=== PATIENT | female | born 1960 | race Hispanic/Latino ===

== ENCOUNTER 2017-02-12 10:31 | Day surgery (SDC) | payer MEDICARE, BC ==
[2017-02-12 11:31] VITALS: BMI 25.8
[2017-02-12] MEDS ORDERED: MethylPREDNISolone Depo 40 mg/ml Inj ONE (11:35)
[2017-02-12] MEDS ORDERED: Lidocaine 1% Inj (20ml) ONE (11:36)
[2017-02-12] MEDS ORDERED: Iohexol 300 10 ML ONE (11:36)
[2017-02-12] MEDS ORDERED: Bupivacaine HCl 0.25% PF (10 ml) Inj ONE (11:36)
[2017-02-12] MEDS ORDERED: Midazolam 2 MG/2 ML VIAL ONE (12:53)
[2017-02-12] MEDS ORDERED: Bupivacaine HCl 0.25% PF (10 ml) Inj IJ ONE (13:01)
[2017-02-12] MEDS ORDERED: methylPREDNISolone Depo 80 mg/ml Inj IM ONE (13:02)
[2017-02-12] MEDS ORDERED: Lidocaine 1% Inj (20ml) IJ ONE (13:02)
[2017-02-12] MEDS ORDERED: Iohexol 300 10 ML IJ ONE (13:03)
[2017-02-12] MEDS ORDERED: Lactated Ringer's 1,000 ML IV ONE (13:03)
[2017-02-12] MEDS ORDERED: Apap-Butalbital-Caffeine 325-50-40mg Tab PO ONE (13:18)
[2017-02-12] MEDS ORDERED: Lactated Ringer's 1,000 ML IV SCH (13:34)
[2017-02-12] MEDS ORDERED: Apap-Butalbital-Caffeine 325-50-40mg Tab PO PRN (13:37)
--- NOTE | 2017-02-12 13:39 | PCM.OP ---
Operative Report - Operative Report Date of Surgery/Procedure: 02/12/17 Time of Surgery/Procedure: 12:50 Surgeon: Alex Anesthesia/Sedation: Monitored Anesthesia Care Pre-Operative Diagnosis: Cervical facet syndrome Post-Operative Diagnosis: Same Indication for Surgery: Intractable pain Procedure/Operation Description: Right C3, C4, C5 medial branch nerve blocks Estimated Blood Loss: None. Complications: None. Discharge & Condition: Stable for discharge home.
[2017-02-12] MEDS ORDERED: HYDROmorphone 0.5 mg/0.5 ml ISec IVP PRN (14:24)
[2017-02-12] MEDS ORDERED: HYDROmorphone 0.5 mg/0.5 ml ISec ONE (14:26)
[2017-02-12 15:47] VITALS: RESP 18
[2017-02-12 16:15] VITALS: BP 133/83; PULSE 87; TEMP 98.3; O2SAT 99
--- NOTE | 2017-02-12 17:12 | RAD ---
PROCEDURE: Intraoperative Fluoroscopy. HISTORY: PAIN MANAGEMENT FINDINGS: Fluoroscopic assistance was provided. Approximately 39.1 seconds fluoroscopy time utilized during this for additional details.
== END 2017-02-12 16:18 | disposition home or self-care (01) ==
LOC: H.OPSURG 10:31
PROVIDERS: ATTEND Anesthesiology
DX: M47.12 Other spondylosis with myelopathy, cervical region (principal); J44.9 Chronic obstructive pulmonary disease, unspecified; E03.9 Hypothyroidism, unspecified; K90.0 Celiac disease
CPT/HCPCS: 64520; J1030; J1040; J1170; J2250; J2405; J3010; J7120; Q9967

== ENCOUNTER 2017-04-05 06:02 | Inpatient (IN) | payer MEDICARE, BC ==
[2017-03-30 12:10] VITALS: BMI 26.2
[2017-04-05] MEDS ORDERED: Lidocaine 2% Jelly (Uro-Jet) ONE (07:17)
[2017-04-05] MEDS ORDERED: Ropivacaine 0.5% 30ML IV ONE (07:17)
[2017-04-05] MEDS ORDERED: Etomidate 20 mg/10ml Inj IV ONE (07:22)
[2017-04-05] MEDS ORDERED: Propofol 10 mg/ml Inj (20 ML) ONE (07:22)
[2017-04-05] MEDS ORDERED: Phenylephrine 10 mg/ml Inj ONE (07:24)
[2017-04-05] MEDS ORDERED: Succinylcholine 200 mg/10 ml Inj IV ONE (07:25)
[2017-04-05] MEDS ORDERED: EPINEPHrine 1 mg/ml (1:1000) Inj ONE (07:46)
[2017-04-05] MEDS ORDERED: Bupivacaine 0.5% Inj(30mL) ONE (07:46)
[2017-04-05] MEDS ORDERED: Absorbable Gelatin Sponge Size 100 ONE (07:47)
[2017-04-05] MEDS ORDERED: Thrombin Topical 5,000 IU Spray Kit ONE (07:47)
[2017-04-05] MEDS ORDERED: Midazolam 2 MG/2 ML VIAL ONE (08:13)
[2017-04-05] MEDS ORDERED: Sodium Chloride 0.9% 1,000 ML IV ONE ×2 (08:14→08:16)
[2017-04-05] MEDS ORDERED: Sodium Chloride 0.9% 500 ML IV ONE (08:16)
[2017-04-05] MEDS ORDERED: Rocuronium 10 mg/ml (5 ml) ONE (08:57)
[2017-04-05] MEDS ORDERED: Neostigmine Methylsulfate 3mg/3ml Syringe IV ONE (09:50)
[2017-04-05] MEDS ORDERED: Lactated Ringer's 1,000 ML IV ONE (11:31)
[2017-04-05] MEDS ORDERED: HYDROmorphone 0.5 mg/0.5 ml ISec IVP PRN (11:38)
--- NOTE | 2017-04-05 11:41 | PCM.ANESB1 ---
Interscalene Block - Brachial Plexus Date of Procedure: 04/05/17 Anesthesiologist: Deanna Pre-Procedure Diagnosis: Right shoulder OA Post-Procedure Diagnosis: Same Procedure Performed: Interscalene Block of Brachial Plexus Right - Procedure Interscalene Block of Brachial Plexus: This procedure was explained to the patient that it is for post-operative pain management. Consent was obtained after a thorough discussion with the patient regarding the benefits and possible complications of local anesthetic block of the Brachial Plexus at the Interscalene area. The patient was brought to the Operating Room and standard monitors were applied. Time out was held with the circulating nurse to confirm the correct surgery and appropriate block. After applying Oxygen by nasal cannula and administering IV Sedation, the patient's head was gently rotated away from the ___right___operative shoulder and the anterior scalene groove was carefully palpated. The ultrasound transducer was then applied to the skin in the transverse plane and the brachial plexus was visualized lateral to the carotid artery and in between the anterior and middle scalene muscles. After identification,the anterior lateral portion of the neck was prepped with Betadine solution three times and Lidocaine 1% was injected subcutaneously for topical analgesia. At this point, a # 22 gauge Stimuplex 2 inches insulated needle was inserted into the interscalene groove and directed in a caudal and midline direction. The needle was inserted lateral to the ultrasound transducer in-plane towards the brachial plexus in a [id number] direction. Needle advancement was performed carefully under direct ultrasound visualization. Nerve stimulator was used and twitched of the affected extremity including the hand brachialis muscles, biceps and the deltoid was obtained at a current of ___0.4__MA. After repeated negative aspiration,___2__cc of___0.5%__, ropivicaine were injected and this was followed with __23___cc of ___0.5__% ____ropivicaine_ . Under ultrasound guidance the local anesthetics were observed surrounding the roots of the brachial plexus. The needle was removed intact and sterile dressing was applied. The patient had stable vital signs, was conscious and in no apparent distress. The patient tolerated the interscalene block of the bracheal plexus well with stable vital signs and was prepared for subsequent surgery.
[2017-04-05] MEDS ORDERED: Sodium Chloride 0.9% 1,000 ML IV SCH (11:45)
--- NOTE | 2017-04-05 11:57 | PCM.SURG1 ---
Surgeon's Initial Post Op Note - Surgeon's Notes Surgeon: Kingston Curriculum And Instruction Specialist: DARCY Grullon Type of Anesthesia: General Endo Anesthesia Administered By: DR John Harry Pre-Operative Diagnosis: osteoarthritis R shoulder Operative Findings: as above. rotator cuff tear R shoulder. biceps tendon attenuation. labral tear r shoulder Post-Operative Diagnosis: as above Operation Performed: R Total shoulder replacement(reverse type). primary repair r rotator cuff. biceps tenodesis. arthrotomy/ excision glenoid labrum Specimen/Specimens Removed: cartilage/bone synovium Estimated Blood Loss: EBL {In ML}: 115 Blood Products Given: N/A, PRBC Drains Used: No Drains Date of Surgery/Procedure: 04/05/17 Time of Surgery/Procedure: 09:40 (time in room:8:14/anaesthesia induction time 8 :14)
[2017-04-05] MEDS: Apap-Butalbital-Caffeine 325-50-40mg Tab PO PRN (16:58)
--- NOTE | 2017-04-05 18:25 | RAD ---
PROCEDURE: Radiographs of the Right Shoulder HISTORY: s/p right total shoulder replacement COMPARISON: Chest radiograph 03/30/2017. FINDINGS: BONES: Patient fasting status post right shoulder replacement with glenoid and humeral prostatic components appearing adequately placed. Skin mike are seen and postoperative soft tissue changes are also identified. No prominent fracture or dislocation is grossly evident this time. JOINTS: Status post total right shoulder joint replacement as discussed above. SOFT TISSUES: Normal. OTHER FINDINGS: None. IMPRESSION: Status post total right shoulder joint replacement as discussed above.
--- NOTE | 2017-04-05 21:40 | PCM.OP ---
Operative Report - Operative Report Date of Surgery/Procedure: 04/05/17 Time of Surgery/Procedure: 09:40 (tiem in room- m8:14/[id number] induction time 8:14) Surgeon: Kingston Recruiting Specialist: DARCY Grullon Anesthesia/Sedation: GETA/ regional block Dr Harry Pre-Operative Diagnosis: Rotator cuff arthritis R shoulder Post-Operative Diagnosis: as above. rotator cufftear. biceps tendon attenuation. labral tear Indication for Surgery: Severe pain and restricted ROM R shoulder- refractory to conservative approach Operative Findings: as above Procedure/Operation Description: R TSR- reverse type. repair R rotator cuff. biceps tenodesis. arthrotmy excision labrum. operative procedure. after having obtained informed consent, after thoroughly discussing pros, cons risks and benefits of surgical approach, the possibility of mechanical failure, infection, thromboembolic disease- possibility of secoindary or tertiary surgery is discussed. After the satisafctory induction of scalene block and general anaesthesia, after having idenitifed side, site and procedure in a critical pause/time out, the pt identified as Sofie is placed in the modified barbner chair position, using the shoulder/upper extremity positioner. An incision is described from the distal 1/3 of the clavicle to the deltoid tuberosity. The skin incision is insufflated with 10 cc of 1/100 epi in 200 cc saline. The incision is decribed and insufflated with the solution. Skin incision is carried down thru skin and subcutaneous tissue. With the shouder in external rotation the deltyopectoral interval is identiified. The cephalic vein is mobilized. The modified pediatric glenn retractor is placed. The clavicpectoral fascia is divided The strap muscles are reflected At a point 1 cm fro mlessere tuberosity, a capsular incision is accomplished There is forun to be a rotator cuff tear as well, and biceps tendon attenuation. the lower subscapular vessels are controlled. with extyernal rotation the humeral hear is dislocated The humeral canal is found and with the appropriate 20 degree retroversion, the humeralostewotomy is accomplished, using the intramedullary guide . The hnuimeral protection plate is applied and the glenohuimeral arthrotomy is accomplisehed. The Biceps tendon is tenotomized. The arthrotomy and excision of the glenoid labrum is accomplished. The Gleoid is exposed using the glenoiod retractors. The guide pion is introduced thru the aiming device; seaming is accomplisahed with the small reamer. The high speed dain is used to more approriately offer a conforming surface for the glenoid component. Reaming is accomplished for the central glenoid peg. The small glenoid comopnent is impacted Thne drilling for the screw holes is accomplisahed with 20 mm superiorly and 26 mm inferiorly. The glenosphere is impacted and the screw is intrroduced. Attention is turned to the humerus. The humerus is exposed and the humeral shaft is reamed to 15 mm. The broach is inserted and trisaling is accomplished sith the standard poly. stability is found to be excellent. The low profile proximal body is affixed to the stem and the construct is impacted. The trial is accomplished and the ROM is found to beexcellent as well as the styability. The Construct is introduced with the real poly insert impacted. The reverse construct is reduced and the construct is stable. Thesubscapularis is repaire sauing interrupted fiber wire suture. The long head biceps tendon is tenodesed. Closure is in layers. hemostasis is controlled using aquamantyus. Closure with 0 quill folowwed by 0 quill and 2 -[address] mike for skin no hemovac is employed. Compression dressing and abduction splint is applied End op note Mansi Onofre Estimated Blood Loss: 125 Blood Replaced: 1 unit Sponge/Instrument Count: correct Drains: no drains Complications: none Specimen: cartilage bone synovium tendon Discharge & Condition: stable
[2017-04-06] MEDS: Levothyroxine 50 MCG TAB PO SCH (06:01)
[2017-04-06] MEDS: Levothyroxine 200 MCG TAB PO SCH (06:01)
[2017-04-06] MEDS: Apap-Butalbital-Caffeine 325-50-40mg Tab PO PRN ×2 (06:01→15:55)
--- NOTE | 2017-04-06 08:19 | CP.PCM.PN ---
Subjective - Date & Time of Evaluation Date of Evaluation: 04/06/17 Time of Evaluation: 08:15 - Subjective Subjective: s- pt comfortable Objective - Vital Signs/Intake and Output Vital Signs (last 24 hours): Temp Pulse Resp BP Pulse Ox 97.6 F 86 18 116/78 98 04/06/17 07:37 04/06/17 07:37 04/06/17 07:37 04/06/17 07:37 04/06/17 07:37 - Medications Medications: Current Medications Acetaminophen (Tylenol 325mg Tab) 650 mg PO Q4 PRN PRN Reason: Temp > 101 Acetaminophen/Butalbital/Caffeine (Fioricet) 1 tab PO Q6 PRN PRN Reason: Headache Last Admin: 04/06/17 06:01 Dose: 1 tab Alprazolam (Xanax) 0.5 mg PO BID [facility] Last Admin: 04/05/17 16:58 Dose: 0.5 mg Amitriptyline HCl (Elavil) 50 mg PO BID [facility] Last Admin: 04/05/17 16:48 Dose: 50 mg Aspirin (Ecotrin) 81 mg PO DAILY [facility] Demeclocycline HCl (Declomycin) 300 mg PO TID [facility] Last Admin: 04/05/17 16:48 Dose: 300 mg Duloxetine HCl (Cymbalta) 30 mg PO BID [facility] Last Admin: 04/05/17 16:48 Dose: 30 mg Gabapentin (Neurontin) 300 mg PO TID [facility] Last Admin: 04/05/17 16:49 Dose: 300 mg Sodium Chloride (Sodium Chloride 0.9%) 1,000 mls @ 100 mls/hr IV .Q10H [facility] Levothyroxine Sodium (Synthroid) 200 mcg PO DAILY@0630 [facility] Last Admin: 04/06/17 06:01 Dose: 200 mcg Levothyroxine Sodium (Synthroid) 50 mcg PO DAILY@0630 [facility] Last Admin: 04/06/17 06:01 Dose: 50 mcg Meclizine HCl (Antivert) 25 mg PO DAILY PRN PRN Reason: Dizziness Morphine Sulfate (Morphine) 2 mg IVP Q6 PRN PRN Reason: Pain, severe (8-10) Last Admin: 04/05/17 23:30 Dose: 2 mg Sucralfate (Carafate Tab) 1 gm PO QID [facility] Last Admin: 04/05/17 22:09 Dose: 1 gm Tramadol HCl (Ultram) 50 mg PO Q6 PRN PRN Reason: Pain, moderate (4-7) Last Admin: 04/06/17 05:54 Dose: 50 mg Zolpidem Tartrate (Ambien) 5 mg PO HS [facility] Last Admin: 04/05/17 22:09 Dose: 5 mg - Skin Additional comments: Objective systemic-unchanged encounter accomplished at bedside with DR Mendieta systemic exam as per Dr Mendieta Musculoskekltal stance/gait- deferred R knee dressing dry and intact orthopedicallys stable Xrayu- reveals excellent position of construct Assessment and Plan - Assessment and Plan (Free Text) Assessment: A- s/p R Total shoulder P-orthopedically stable for rehab transfer -
[2017-04-06 12:33] LABS: HEMATOCRIT 31.2 % (34.0-47.0); MEAN CELL VOLUME 91.1 fl (81.0-99.0); MEAN CORPUSCULAR HEMOGLOBIN 29.9 pg (27.0-31.0); MEAN CORPUSCULAR HGB CONC 32.8 g/dL (33.0-37.0); RED CELL DISTRIBUTION WIDTH 14.5 % (11.5-14.5); WHITE BLOOD COUNT 9.1 K/uL (4.8-10.8)
[2017-04-06 12:43] LABS: BLOOD UREA NITROGEN 4 mg/dl (7-17); CARBON DIOXIDE 28 mmol/L (22-30); CHLORIDE 91 mmol/L (98-107); GFR AFRICAN-AMERICAN > 60; GLUCOSE,RANDOM 102 mg/dL (65-105); POTASSIUM 3.4 MMOL/L (3.6-5.0); SODIUM 127 mmol/l (132-148)
[2017-04-06] MEDS: Oxycodone/Acetaminophen 5/325 mg Tab PO PRN ×2 (13:36→21:33)
[2017-04-06] MEDS ORDERED: Potassium Chloride 20 mEq ER Tab PO ONE (13:49)
[2017-04-06] MEDS: Enoxaparin 40 mg Syringe SC SCH (15:57)
--- NOTE | 2017-04-06 18:25 | HP ---
HISTORY OF PRESENT ILLNESS: Ms. Treadwell is a 56-year-old female who was admitted to the medical floor post right shoulder replacement surgery. She had ligament damage in the right shoulder, was repaired for reconstructive surgery and postoperative was admitted to the medical floor. She is potentially being admitted to transitional care for aggressive rehabilitation. PAST MEDICAL HISTORY: She has a past medical history of celiac disease, hypothyroidism, status post brain surgery for intracranial abscess years ago, and has memory. FAMILY HISTORY: Remarkable for mother who had complications of pulmonary fibrosis and chronic obstructive pulmonary disease. SOCIAL HISTORY: Quit smoking years ago. Does not drink and does not use drugs. REVIEW OF SYSTEMS: Essentially remarkable for shoulder pain and unsteadiness of gait and abdominal discomfort. PHYSICAL EXAMINATION: GENERAL: The patient is alert and oriented, appears to be in moderate distress because of pain following shoulder surgery. VITAL SIGNS: Blood pressure 116/78 with a pulse of 86 and respirations 18. She is afebrile. O2 saturation is 98% on room air. SKIN: Shows fair turgor. HEENT: Pupils are equal and reactive to light and accommodation. JVP flat. Mouth shows fair hygiene. LUNGS: Clear. HEART: Regular. No murmurs or gallops. BREASTS: Normal. ABDOMEN: Soft, nontender, no organomegaly. EXTREMITIES: There is tenderness over the right shoulder surgical site. The patient is in a sling. CENTRAL NERVOUS SYSTEM: Grossly intact. LABORATORY DATA: Remarkable for preoperative labs that have been reviewed. IMPRESSION: Status post right shoulder replacement surgery, history of celiac disease, history of hypothyroidism, history of severe hyponatremia, and history of brain surgery. PLAN: Monitor the patient on regular medical floor, aggressive physical therapy. We would give pain medications as needed. We would transfer to transitional care once clinically stable. Justin Mendieta MD
[2017-04-07] MEDS: Apap-Butalbital-Caffeine 325-50-40mg Tab PO PRN ×2 (03:13→10:00)
--- NOTE | 2017-04-07 03:47 | CON ---
ENDOCRINOLOGY CONSULTATION DATE: HISTORY OF PRESENT ILLNESS: This is a 56-year-old female admitted yesterday and underwent a biceps tendon attenuation and repair of the rotator cuff tear and is now being referred for endocrine evaluation and management. PAST MEDICAL HISTORY: As mentioned above, 1. History of hypothyroidism related to underlying autoimmune thyroiditis and is currently on the high dose of levothyroxine replacement therapy, using a dose of 250 mcg once daily in the morning as ordered. 2. History of hypertension and dyslipidemia. 3. 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 She is currently being given demeclocycline given as 300 mg three times a day as ordered and there baseline serum sodium has been ranging from 127 to 129 mmol/L. 4. History of chronic right shoulder pain and radiculopathy related to an underlying rotator cuff injury and tear and has been on narcotic analgesics till the present time. She also has severe lower back pain related to lumbar radiculopathy secondary to lumbar disc disease. FAMILY HISTORY: Positive for hypertension and diabetes. SOCIAL HISTORY: The patient has a supportive family. No known substance use. REVIEW OF SYSTEMS: As mentioned above. Admits to generalized body weakness with easy fatigability and tiredness and suboptimal energy level. Also admits to dizziness and lightheadedness, worse on the day of admission. No chest pains or palpitations or PNDs. Her oral intake has been variable and suboptimal with nausea, dyspepsia, and vague upper abdominal pain. PHYSICAL EXAMINATION: GENERAL: This is an average-built female in no apparent distress. VITAL SIGNS: Blood pressure of 140/80, pulse of 70 beats per minute and regular, temperature 98.0, respirations 20, height is 4 feet 11 inches, weight is 130 pounds. HEENT: Head normocephalic. Eyes anicteric with pink conjunctivae. Funduscopy was not possible at this time. Ears, nose, and throat otherwise normal. NECK: Supple. Thyroid gland shows nodular thyromegaly, which is firm and nontender with no overt thyroid bruits or palpable thyroid nodules or any cervical adenopathy otherwise. HEART: Adynamic precordium. S1 and S2 is rapid and regular. LUNGS: Clear to auscultation. ABDOMEN: Flat and soft with positive bowel sounds. EXTREMITIES: No peripheral edema. Pulses are +2 bilaterally. LABORATORIES: The chemistries showed BUN of 4, sodium 127, potassium 3.4, chloride 91, CO2 20, creatinine is 0.5, glucose is 102, calcium is 9.0. ASSESSMENT: This is a 56-year-old female with overt euvolemic hyponatremia related to underlying syndrome of inappropriate secretion of antidiuretic hormone from a prior craniotomy undertaken thereof. She is also clinically and biochemically euthyroid at this time with the previous thyroid studies done accordingly. Plan of management as discussed with the patient and staff, we will modify her current dosing regimen at this time and keep the demeclocycline of 300 mg t.i.d. before meals as ordered. We will also obtain serial thyroid studies and adjust her levothyroxine dose accordingly. We will obtain serum cortisol and ACTH and plasma renin and CPT level as ordered. We will follow and advise accordingly. Lila Shell MD
[2017-04-07] MEDS: Oxycodone/Acetaminophen 5/325 mg Tab PO PRN (06:19)
[2017-04-07] MEDS: Levothyroxine 200 MCG TAB PO SCH (06:19)
[2017-04-07] MEDS: Levothyroxine 50 MCG TAB PO SCH (06:19)
[2017-04-07 06:44] LABS: ALB/GLOB RATIO 1.5 (1.0-2.1); ALKALINE PHOSPHATASE 98 U/L (38-126); ALT/SGPT 39 U/L (9-52); AST/SGOT 60 U/L (14-36); BILIRUBIN,TOTAL 0.4 mg/dl (0.2-1.3); BLOOD UREA NITROGEN 4 mg/dl (7-17); CALCIUM 8.9 mg/dL (8.4-10.2); CARBON DIOXIDE 28 mmol/L (22-30); CHLORIDE 95 mmol/L (98-107); CHOLESTEROL 224 mg/dL (0-199); GFR AFRICAN-AMERICAN > 60; GLUCOSE,RANDOM 113 mg/dL (65-105); POTASSIUM 4.2 MMOL/L (3.6-5.0); SODIUM 128 mmol/l (132-148); TOTAL PROTEIN 6.2 G/DL (6.3-8.2)
[2017-04-07 06:54] LABS: T4 10.5 ug/dl (5.5-11.0)
[2017-04-07 07:07] LABS: THYROID STIMULATING HORMONE 3.13 mIU/ML (0.46-4.68)
[2017-04-07] MEDS: Enoxaparin 40 mg Syringe SC SCH (08:29)
--- NOTE | 2017-04-07 08:34 | CP.PCM.PN ---
Subjective - Date & Time of Evaluation Date of Evaluation: 04/07/17 Time of Evaluation: 08:15 - Subjective Subjective: S- pt with minimal post op discomfort Objective - Vital Signs/Intake and Output Vital Signs (last 24 hours): Temp Pulse Resp BP Pulse Ox 98.1 F 98 H 18 103/67 93 L 04/07/17 07:32 04/07/17 07:32 04/07/17 07:32 04/07/17 07:32 04/07/17 07:32 - Medications Medications: Current Medications Acetaminophen (Tylenol 325mg Tab) 650 mg PO Q4 PRN PRN Reason: Temp > 101 Acetaminophen/Butalbital/Caffeine (Fioricet) 1 tab PO Q6 PRN PRN Reason: Headache Last Admin: 04/07/17 03:13 Dose: 1 tab Alprazolam (Xanax) 0.5 mg PO BID [facility] Last Admin: 04/06/17 17:03 Dose: 0.5 mg Amitriptyline HCl (Elavil) 50 mg PO BID [facility] Last Admin: 04/06/17 16:58 Dose: 50 mg Aspirin (Ecotrin) 81 mg PO DAILY [facility] Last Admin: 04/06/17 09:17 Dose: 81 mg Demeclocycline HCl (Declomycin) 300 mg PO TID [facility] Last Admin: 04/06/17 16:58 Dose: 300 mg Docusate Sodium (Colace) 100 mg PO BID [facility] Last Admin: 04/06/17 16:58 Dose: 100 mg Duloxetine HCl (Cymbalta) 30 mg PO BID [facility] Last Admin: 04/06/17 16:58 Dose: 30 mg Enoxaparin Sodium (Lovenox) 40 mg SC DAILY [facility] PRN Reason: Protocol Last Admin: 04/06/17 15:57 Dose: 40 mg Gabapentin (Neurontin) 300 mg PO TID [facility] Last Admin: 04/06/17 16:57 Dose: 300 mg Hydromorphone HCl (Dilaudid) 1 mg IVP Q6 PRN PRN Reason: Pain, severe (8-10) Last Admin: 04/07/17 03:11 Dose: 1 mg Sodium Chloride (Sodium Chloride 0.9%) 1,000 mls @ 100 mls/hr IV .Q10H [facility] Levothyroxine Sodium (Synthroid) 200 mcg PO DAILY@0630 [facility] Last Admin: 04/07/17 06:19 Dose: 200 mcg Levothyroxine Sodium (Synthroid) 50 mcg PO DAILY@0630 [facility] Last Admin: 04/07/17 06:19 Dose: 50 mcg Meclizine HCl (Antivert) 25 mg PO DAILY PRN PRN Reason: Dizziness Last Admin: 04/06/17 09:17 Dose: 25 mg Oxycodone/Acetaminophen (Percocet 5/325 Mg Tab) 1 tab PO Q4 PRN PRN Reason: Pain, moderate (4-7) Stop: 04/09/17 10:01 Last Admin: 04/07/17 06:19 Dose: 1 tab Sucralfate (Carafate Tab) 1 gm PO QID [facility] Last Admin: 04/06/17 22:22 Dose: 1 gm Zolpidem Tartrate (Ambien) 5 mg PO HS [facility] Last Admin: 04/06/17 22:22 Dose: 5 mg - Labs Labs: 04/06/17 11:50 04/07/17 06:05 - Additional Findings Additional findings: Objective exam systemic exam- wnl MUsculoskeletal stance/gait- defrred R shoulder immobilizer intact N/V intact no gross defcits ' pt with minimal post op discomfort Assessment and Plan - Assessment and Plan (Free Text) Assessment: A- s/p R Total Shoulder Replacement P- shoulder immobilizer orthopedically stable for rehab transfer
[2017-04-07] MEDS ORDERED: Phenol 1.4% Throat Spray MT PRN (09:37)
[2017-04-07] MEDS ORDERED: oxyCODONE 10 mg Immediate Release Tab PO PRN (09:38)
--- NOTE | 2017-04-07 09:40 | CP.PCM.PN ---
Subjective - Date & Time of Evaluation Date of Evaluation: 04/07/17 Time of Evaluation: 09:41 - Subjective Subjective: SHOULDER P[AIN PRESENT C/O SORETHROAT Objective - Vital Signs/Intake and Output Vital Signs (last 24 hours): Temp Pulse Resp BP Pulse Ox 98.1 F 98 H 18 103/67 93 L 04/07/17 07:32 04/07/17 07:32 04/07/17 07:32 04/07/17 07:32 04/07/17 07:32 - Medications Medications: Current Medications Acetaminophen (Tylenol 325mg Tab) 650 mg PO Q4 PRN PRN Reason: Temp > 101 Acetaminophen/Butalbital/Caffeine (Fioricet) 1 tab PO Q6 PRN PRN Reason: Headache Last Admin: 04/07/17 03:13 Dose: 1 tab Alprazolam (Xanax) 0.5 mg PO BID [facility] Last Admin: 04/07/17 08:28 Dose: 0.5 mg Amitriptyline HCl (Elavil) 50 mg PO BID [facility] Last Admin: 04/07/17 08:28 Dose: 50 mg Aspirin (Ecotrin) 81 mg PO DAILY [facility] Last Admin: 04/07/17 08:29 Dose: 81 mg Demeclocycline HCl (Declomycin) 300 mg PO TID [facility] Last Admin: 04/07/17 08:29 Dose: 300 mg Docusate Sodium (Colace) 100 mg PO BID [facility] Last Admin: 04/07/17 08:28 Dose: 100 mg Duloxetine HCl (Cymbalta) 30 mg PO BID [facility] Last Admin: 04/07/17 08:28 Dose: 30 mg Enoxaparin Sodium (Lovenox) 40 mg SC DAILY [facility] PRN Reason: Protocol Last Admin: 04/07/17 08:29 Dose: 40 mg Gabapentin (Neurontin) 300 mg PO TID [facility] Last Admin: 04/07/17 08:29 Dose: 300 mg Hydromorphone HCl (Dilaudid) 1 mg IVP Q6 PRN PRN Reason: Pain, severe (8-10) Last Admin: 04/07/17 03:11 Dose: 1 mg Sodium Chloride (Sodium Chloride 0.9%) 1,000 mls @ 100 mls/hr IV .Q10H [facility] Levothyroxine Sodium (Synthroid) 200 mcg PO DAILY@0630 [facility] Last Admin: 04/07/17 06:19 Dose: 200 mcg Levothyroxine Sodium (Synthroid) 50 mcg PO DAILY@30 [facility] Last Admin: 04/07/17 06:19 Dose: 50 mcg Meclizine HCl (Antivert) 25 mg PO DAILY PRN PRN Reason: Dizziness Last Admin: 04/06/17 09:17 Dose: 25 mg Oxycodone/Acetaminophen (Percocet 5/325 Mg Tab) 1 tab PO Q4 PRN PRN Reason: Pain, moderate (4-7) Stop: 04/09/17 10:01 Last Admin: 04/07/17 06:19 Dose: 1 tab Sucralfate (Carafate Tab) 1 gm PO QID [facility] Last Admin: 04/07/17 08:29 Dose: 1 gm Zolpidem Tartrate (Ambien) 5 mg PO HS [facility] Last Admin: 04/06/17 22:22 Dose: 5 mg - Labs Labs: 04/06/17 11:50 04/07/17 06:05 - Constitutional Appears: In Acute Distress - Head Exam Head Exam: ATRAUMATIC, NORMAL INSPECTION, NORMOCEPHALIC - Eye Exam Eye Exam: EOMI, Normal appearance, PERRL Pupil Exam: NORMAL ACCOMODATION, PERRL - ENT Exam ENT Exam: Mucous Membranes Moist, Normal Exam - Neck Exam Neck Exam: Full ROM, Normal Inspection. absent: Lymphadenopathy - Respiratory Exam Respiratory Exam: Clear to Ausculation Bilateral, NORMAL BREATHING PATTERN - Cardiovascular Exam Cardiovascular Exam: REGULAR RHYTHM, +S1, +S2. absent: Murmur - GI/Abdominal Exam GI & Abdominal Exam: Soft, Normal Bowel Sounds. absent: Tenderness - Rectal Exam Rectal Exam: NORMAL INSPECTION - Extremities Exam Extremities Exam: Full ROM, Normal Capillary Refill, Normal Inspection. absent : Joint Swelling, Pedal Edema Additional comments: SHOULDER PAIN - Back Exam Back Exam: NORMAL INSPECTION - Neurological Exam Neurological Exam: Alert, Awake, CN II-XII Intact, Normal Gait, Oriented x3 - Psychiatric Exam Psychiatric exam: Normal Affect, Normal Mood - Skin Skin Exam: Dry, Intact, Normal Color, Warm Assessment and Plan - Assessment and Plan (Free Text) Assessment: S/P SHOULDER SURGERY CELIAC DZ ASTHMA--INTERMITTENT Plan: CONTINUE RX ORDERED FOR TRANSFER TO TCU IN AM
[2017-04-07] MEDS ORDERED: oxyCODONE 5 mg Immediate Release Tab PO PRN (10:00)
[2017-04-07 12:07] LABS: CORTISOL AM 4.1 ug/dL (4.46-22.7)
[2017-04-07] MEDS: Albuterol-Ipratrop 3 mg / 0.5 (3 ml) UD INH SCH ×3 (12:17→19:48)
--- NOTE | 2017-04-07 22:13 | PN ---
LOCATION: Room 650. This is a 56-year-old female with known history of SIADH related to a prior craniotomy, currently admitted with right shoulder joint replacement with an underlying rotator cuff repair and is now being followed closely postoperatively as noted. So, she remains clinically and biochemically euthyroid at this time and the repeat thyroid studies today showed a T4 of 10.5 mcg/dL and TSH of 3.13. Her latest chemistry showed a BUN of 4, sodium 128, potassium 4.2, chloride 95, CO2 28, glucose 113 and creatinine 0.7. So, at this time we will continue the demeclocycline given as 300 mg t.i.d. before meals as ordered. We will also continue the high-dose levothyroxine replacement therapy with Synthroid given as 250 mcg once daily in the morning as ordered. We will titrate incrementally as indicated to optimize metabolic control. We will also obtain serial thyroid studies and determine the need for dose adjustments accordingly. We will follow. Lila Shell MD
[2017-04-08] MEDS ORDERED: Albuterol-Ipratrop 3 mg / 0.5 (3 ml) UD INH ONE (00:06)
[2017-04-08] MEDS: Apap-Butalbital-Caffeine 325-50-40mg Tab PO PRN ×2 (00:10→09:35)
[2017-04-08 06:19] LABS: HEMATOCRIT 26.4 % (34.0-47.0); MEAN CELL VOLUME 91.3 fl (81.0-99.0); MEAN CORPUSCULAR HEMOGLOBIN 30.6 pg (27.0-31.0); MEAN CORPUSCULAR HGB CONC 33.4 g/dL (33.0-37.0); RED CELL DISTRIBUTION WIDTH 14.1 % (11.5-14.5); WHITE BLOOD COUNT 10.7 K/uL (4.8-10.8)
[2017-04-08] MEDS: Levothyroxine 200 MCG TAB PO SCH (06:19)
[2017-04-08] MEDS: Levothyroxine 50 MCG TAB PO SCH (06:19)
[2017-04-08 06:29] LABS: BLOOD UREA NITROGEN 5 mg/dl (7-17); CALCIUM 8.7 mg/dL (8.4-10.2); CARBON DIOXIDE 28 mmol/L (22-30); CHLORIDE 97 mmol/L (98-107); GFR AFRICAN-AMERICAN > 60; GLUCOSE,RANDOM 112 mg/dL (65-105); POTASSIUM 3.7 MMOL/L (3.6-5.0); SODIUM 131 mmol/l (132-148)
[2017-04-08 07:24] VITALS: BP 90/56; PULSE 98; RESP 18; TEMP 98.4; O2SAT 91
[2017-04-08] MEDS: Albuterol-Ipratrop 3 mg / 0.5 (3 ml) UD INH SCH ×2 (07:24→11:21)
--- NOTE | 2017-04-08 08:07 | CP.PCM.PN ---
Subjective - Date & Time of Evaluation Date of Evaluation: 04/08/17 Time of Evaluation: 08:09 - Subjective Subjective: C/O DRY COUGH SHOULDER PAIN PERSISTS Objective - Vital Signs/Intake and Output Vital Signs (last 24 hours): Temp Pulse Resp BP Pulse Ox 98.4 F 98 H 18 90/56 L 91 L 04/08/17 07:23 04/08/17 07:23 04/08/17 07:23 04/08/17 07:23 04/08/17 07:23 - Medications Medications: Current Medications Acetaminophen (Tylenol 325mg Tab) 650 mg PO Q4 PRN PRN Reason: Temp > 101 Acetaminophen/Butalbital/Caffeine (Fioricet) 1 tab PO Q6 PRN PRN Reason: Headache Last Admin: 04/08/17 00:10 Dose: 1 tab Albuterol/Ipratropium (Duoneb 3 Mg/0.5 Mg (3 Ml) Ud) 3 ml INH RQID [facility] Last Admin: 04/08/17 07:24 Dose: 3 ml Alprazolam (Xanax) 0.5 mg PO BID [facility] Last Admin: 04/07/17 16:54 Dose: 0.5 mg Amitriptyline HCl (Elavil) 50 mg PO BID [facility] Last Admin: 04/07/17 16:52 Dose: 50 mg Aspirin (Ecotrin) 81 mg PO DAILY [facility] Last Admin: 04/07/17 08:29 Dose: 81 mg Demeclocycline HCl (Declomycin) 300 mg PO TID [facility] Last Admin: 04/07/17 16:51 Dose: 300 mg Docusate Sodium (Colace) 100 mg PO BID [facility] Last Admin: 04/07/17 16:52 Dose: 100 mg Duloxetine HCl (Cymbalta) 30 mg PO BID [facility] Last Admin: 04/07/17 16:51 Dose: 30 mg Enoxaparin Sodium (Lovenox) 40 mg SC DAILY [facility] PRN Reason: Protocol Last Admin: 04/07/17 08:29 Dose: 40 mg Gabapentin (Neurontin) 300 mg PO TID [facility] Last Admin: 04/07/17 16:51 Dose: 300 mg Hydromorphone HCl (Dilaudid) 1 mg IVP Q4 PRN PRN Reason: Pain, severe (8-10) Last Admin: 04/08/17 06:00 Dose: 1 mg Sodium Chloride (Sodium Chloride 0.9%) 1,000 mls @ 100 mls/hr IV .Q10H [facility] Levothyroxine Sodium (Synthroid) 200 mcg PO DAILY@0630 [facility] Last Admin: 04/08/17 06:19 Dose: 200 mcg Levothyroxine Sodium (Synthroid) 50 mcg PO DAILY@0630 [facility] Last Admin: 04/08/17 06:19 Dose: 50 mcg Meclizine HCl (Antivert) 25 mg PO DAILY PRN PRN Reason: Dizziness Last Admin: 04/06/17 09:17 Dose: 25 mg Oxycodone HCl (Oxycodone Immediate Release Tab) 10 mg PO Q4 PRN PRN Reason: Pain, moderate (4-7) Last Admin: 04/07/17 10:14 Dose: 10 mg Phenol/Menthol (Phenaseptic 1.4% Throat [place]) 1 spry MT Q2 PRN PRN Reason: throat Sucralfate (Carafate Tab) 1 gm PO QID [facility] Last Admin: 04/07/17 21:07 Dose: 1 gm Zolpidem Tartrate (Ambien) 5 mg PO HS [facility] Last Admin: 04/08/17 01:43 Dose: Not Given - Labs Labs: 04/08/17 05:00 04/08/17 05:00 - Constitutional Appears: In Acute Distress - Head Exam Head Exam: ATRAUMATIC, NORMAL INSPECTION, NORMOCEPHALIC - Eye Exam Eye Exam: EOMI, Normal appearance, PERRL Pupil Exam: NORMAL ACCOMODATION, PERRL - ENT Exam ENT Exam: Mucous Membranes Moist, Normal Exam - Neck Exam Neck Exam: Full ROM, Normal Inspection. absent: Lymphadenopathy - Respiratory Exam Respiratory Exam: Prolonged Expiratory Phase, Wheezes, NORMAL BREATHING PATTERN - Cardiovascular Exam Cardiovascular Exam: REGULAR RHYTHM, +S1, +S2. absent: Murmur - GI/Abdominal Exam GI & Abdominal Exam: Soft, Normal Bowel Sounds. absent: Tenderness - Rectal Exam Rectal Exam: NORMAL INSPECTION - Extremities Exam Extremities Exam: Full ROM, Normal Capillary Refill, Normal Inspection, Tenderness. absent: Joint Swelling, Pedal Edema - Back Exam Back Exam: NORMAL INSPECTION - Neurological Exam Neurological Exam: Alert, Awake, CN II-XII Intact, Normal Gait, Oriented x3 - Psychiatric Exam Psychiatric exam: Normal Affect, Normal Mood - Skin Skin Exam: Dry, Intact, Normal Color, Warm Assessment and Plan - Assessment and Plan (Free Text) Assessment: S/0P R SHOULDER REPLACEMENT SURGERY HYPONATREMIA CELIAC DZ HX OF ASTHMA--CHRONIC INTERMITTENT Plan: CONTINUE RX ORDERED TRANSFER TO TCU TODAY
[2017-04-08] MEDS ORDERED: Promethazine DM 12.5 mg-30 mg/10 ml Syrup PO PRN (08:10)
[2017-04-08] MEDS: Enoxaparin 40 mg Syringe SC SCH (08:29)
--- NOTE | 2017-04-08 17:13 | PN ---
LOCATION: Room 650. SUBJECTIVE: This is a 56-year-old female with SIADH and euvolemic hyponatremia, currently admitted for a right shoulder replacement procedure and is now being followed closely for metabolic management. LABORATORY DATA: Her repeat chemistry showed a BUN of 5, sodium 131, potassium 3.7, chloride 97, CO2 28, glucose 112, creatinine 0.5. Her latest thyroid studies with a T4 of 10.5 mcg/dL with TSH of 3.13 and serum cortisol level of 4.1. PLAN: So, at this time, we will continue the same high-dose levothyroxine replacement therapy given as 250 mcg daily as Synthroid as ordered. We will also continue the demeclocycline given as 300 mg p.o. t.i.d. for control of hyponatremia. We will obtain serial chemistries and supplement accordingly as needed. We will follow. Lila Shell MD
--- NOTE | 2017-04-09 12:16 | CP.PCM.DIS ---
Provider - Provider Date of Admission: 04/05/17 12:44 Attending physician: Justin Mendieta MD Primary care physician: Justin Mendieta MD Time Spent in preparation of Discharge (in minutes): 36 Diagnosis - Discharge Diagnosis (1) Aftercare following joint replacement surgery Status: Acute (2) Celiac disease Status: Acute (3) Dizziness Status: Acute (4) Hyponatremia Status: Acute (5) Migraine Status: Acute Hospital Course - Lab Results Lab Results: Most Recent Lab Values WBC 10.7 K/uL (4.8-10.8) 04/08/17 05:00 RBC 2.89 Mil/uL (3.80-5.20) L 04/08/17 05:00 Hgb 8.8 g/dL (12.0-16.0) L 04/08/17 05:00 Hct 26.4 % (34.0-47.0) L 04/08/17 05:00 MCV 91.3 fl (81.0-99.0) 04/08/17 05:00 MCH 30.6 pg (27.0-31.0) 04/08/17 05:00 MCHC 33.4 g/dL (33.0-37.0) 04/08/17 05:00 RDW 14.1 % (11.5-14.5) 04/08/17 05:00 Plt Count 236 K/uL (130-400) 04/08/17 05:00 Sodium 131 mmol/l (132-148) L 04/08/17 05:00 Potassium 3.7 MMOL/L (3.6-5.0) 04/08/17 05:00 Chloride 97 mmol/L (98-107) L 04/08/17 05:00 Carbon Dioxide 28 mmol/L (22-30) 04/08/17 05:00 Anion Gap 10 (10-20) 04/08/17 05:00 BUN 5 mg/dl (7-17) L 04/08/17 05:00 Creatinine 0.5 mg/dL (0.7-1.2) L 04/08/17 05:00 Est GFR ( Amer) > 60 04/08/17 05:00 Est GFR (Non-Af Amer) > 60 04/08/17 05:00 Random Glucose 112 mg/dL (65-105) H 04/08/17 05:00 Calcium 8.7 mg/dL (8.4-10.2) 04/08/17 05:00 Total Bilirubin 0.4 mg/dl (0.2-1.3) 04/07/17 06:05 AST 60 U/L (14-36) H D 04/07/17 06:05 ALT 39 U/L (9-52) 04/07/17 06:05 Alkaline Phosphatase 98 U/L (38-126) 04/07/17 06:05 Total Protein 6.2 G/DL (6.3-8.2) L 04/07/17 06:05 Albumin 3.7 g/dL (3.5-5.0) 04/07/17 06:05 Globulin 2.5 gm/dL (2.2-3.9) 04/07/17 06:05 Albumin/Globulin Ratio 1.5 (1.0-2.1) 04/07/17 06:05 Triglycerides 103 mg/DL (0-149) 04/07/17 06:05 Cholesterol 224 mg/dL (0-199) H 04/07/17 06:05 LDL Cholesterol Direct 148 mg/dL (0-129) H 04/07/17 06:05 HDL Cholesterol 46 MG/DL (30-70) 04/07/17 06:05 Thyroxine (T4) 10.5 ug/dl (5.5-11.0) 04/07/17 06:05 TSH 3rd Generation 3.13 mIU/ML (0.46-4.68) 04/07/17 06:05 Cortisol AM Sample 4.1 ug/dL (4.46-22.7) L 04/07/17 06:05 Blood Type O POSITIVE 04/05/17 07:40 Antibody Screen Negative 04/05/17 07:40 Crossmatch See Detail 04/05/17 07:40 BBK History Checked Patient has bt 04/05/17 07:40 - Hospital Course Hospital Course: still has shoulder pains and ecchymosis of chest wall Discharge Exam - Head Exam Head Exam: ATRAUMATIC, NORMAL INSPECTION, NORMOCEPHALIC - Eye Exam Eye Exam: EOMI, Normal appearance, PERRL Pupil Exam: NORMAL ACCOMODATION, PERRL - GI/Abdominal Exam GI & Abdominal Exam: Normal Bowel Sounds - Rectal Exam Rectal Exam: NORMAL INSPECTION - Extremities Exam Additional comments: r arm in a sling - Neurological Exam Neurological exam: Abnormal Gait, Alert, CN II-XII Intact, Oriented x3, Reflexes Normal - Psychiatric Exam Psychiatric exam: Anxious, Normal Affect, Normal Mood - Skin Skin Exam: Dry, Intact, Warm Additional comments: ecchymosis of chest wall Discharge Plan - Follow Up Plan Condition: GOOD Disposition: TRANSF TO SNF Patient education suggested?: Yes Instructions: Precautions after Total Joint Replacement Surgery (DC), Joint Replacement Surgery (DC) Referrals: Justin Mendieta MD [Primary Care Provider] -
== END 2017-04-08 13:16 | DRG 483 ==
LOC: H.OPSURG 06:02 → H.MEDSURG1 12:44
PROVIDERS: ADMIT Internal Medicine Pulmonary Disease; ATTEND Internal Medicine Pulmonary Disease
PROC: 0LQ10ZZ Repair Right Shoulder Tendon, Open Approach (ICD-10-PCS; 2017-04-05)
PROC: 0LS30ZZ Reposition Right Upper Arm Tendon, Open Approach (ICD-10-PCS; 2017-04-05)
PROC: 3E0T3BZ Introduction of Anesthetic Agent into Peripheral Nerves and Plexi, Percutaneous Approach (ICD-10-PCS; principal; 2017-04-05 07:45)
PROC: 0RRJ00Z Replacement of Right Shoulder Joint with Reverse Ball and Socket Synthetic Substitute, Open Approach (ICD-10-PCS; 2017-04-05 07:45)
DX: M19.011 Primary osteoarthritis, right shoulder (principal); E22.2 Syndrome of inappropriate secretion of antidiuretic hormone; I10 Essential (primary) hypertension; E06.3 Autoimmune thyroiditis; Z88.0 Allergy status to penicillin; E78.5 Hyperlipidemia, unspecified; M75.101 Unspecified rotator cuff tear or rupture of right shoulder, not specified as traumatic; K90.0 Celiac disease; J45.20 Mild intermittent asthma, uncomplicated; G43.909 Migraine, unspecified, not intractable, without status migrainosus; R42 Dizziness and giddiness; Z87.891 Personal history of nicotine dependence; M54.16 Radiculopathy, lumbar region; S43.401A Unspecified sprain of right shoulder joint, initial encounter; X58.XXXA Exposure to other specified factors, initial encounter

== ENCOUNTER 2017-04-08 10:09 | Inpatient (IN) | payer OTHER, BC ==
[2017-03-30 09:49] VITALS: BMI 24.8
[2017-04-08 14:44] VITALS: RESP 20
[2017-04-08] MEDS: Apap-Butalbital-Caffeine 325-50-40mg Tab PO PRN (18:14)
[2017-04-08] MEDS ORDERED: Phenol 1.4% Throat Spray MT PRN (18:40)
[2017-04-08] MEDS: oxyCODONE 5 mg Immediate Release Tab PO PRN (20:07)
[2017-04-08] MEDS: Promethazine DM 12.5 mg-30 mg/10 ml Syrup PO PRN (21:02)
[2017-04-09] MEDS: Levothyroxine 200 MCG TAB PO SCH ×2 (05:56→09:15)
[2017-04-09] MEDS: Levothyroxine 50 MCG TAB PO SCH ×2 (05:57→09:14)
[2017-04-09] MEDS: Promethazine DM 12.5 mg-30 mg/10 ml Syrup PO PRN ×2 (06:00→17:48)
[2017-04-09] MEDS: Apap-Butalbital-Caffeine 325-50-40mg Tab PO PRN ×2 (06:00→20:06)
[2017-04-09] MEDS: Enoxaparin 40 mg Syringe SC SCH (09:14)
[2017-04-09] MEDS: oxyCODONE 5 mg Immediate Release Tab PO PRN ×3 (09:21→19:06)
[2017-04-09] MEDS: Albuterol-Ipratrop 3 mg / 0.5 (3 ml) UD INH SCH ×2 (15:51→19:51)
--- NOTE | 2017-04-09 22:54 | HP ---
HISTORY OF PRESENT ILLNESS: The patient is a 56-year-old female who was admitted to the transitional care unit for aggressive physical therapy and occupational therapy. She is status post right total shoulder replacement surgery and was originally admitted to the medical floor, but then transferred to transitional care for further therapy. PAST MEDICAL HISTORY: She has a past medical history of severe hyponatremia with recurrent dizziness, status post brain surgery because of cerebritis and sinus infection. She also has a history of celiac disease; asthma, chronic, intermittent; neuropathy; hypothyroidism and severe anxiety. FAMILY HISTORY: Remarkable for mother who of complications from pulmonary fibrosis and chronic obstructive pulmonary disease. SOCIAL HISTORY: She quit smoking years ago, does not drink, does not use alcohol and does not use drugs and lives at home with the family. REVIEW OF SYSTEMS: Remarkable for severe joint pains, recurrent dizziness and forgetfulness. PHYSICAL EXAMINATION GENERAL: The patient is alert, oriented to person, place, and time, but has a short-term memory loss. VITAL SIGNS: Blood pressure 101/64, down to 99/62; pulse of 107; respiratory rate 20. She is afebrile. O2 sat between 90% to 98% on room air. SKIN: Shows fair turgor. HEENT: Pupils are equal and reactive to light and accommodation. Mouth shows fair hygiene. JVP flat. CHEST WALL: Diffuse ecchymosis due to surgery. There is sling over the right shoulder following a shoulder replacement surgery. BREASTS: Normal. LUNGS: Fair aeration with mild wheezing. HEART: S1 and S2. ABDOMEN: Soft, nontender. No organomegaly. EXTREMITIES: Except for right shoulder surgery is essentially unremarkable. CENTRAL NERVOUS SYSTEM EXAMINATION: Remarkable for unsteadiness of gait with some dizziness and poor memory. LABORATORY DATA: Pending. IMPRESSION: Status post right total shoulder replacement surgery, recurrent dizziness, hyponatremia, neuropathy and hypothyroidism. PLAN: Maintain the patient in transistional care unit, aggressive physical and occupational therapy. We will review labs, orthopedic followup. Further therapy will depend on findings. Justin Mendieta MD
[2017-04-10] MEDS: oxyCODONE 5 mg Immediate Release Tab PO PRN ×5 (01:30→18:18)
[2017-04-10] MEDS: Promethazine DM 12.5 mg-30 mg/10 ml Syrup PO PRN ×2 (05:27→13:27)
[2017-04-10] MEDS: Albuterol-Ipratrop 3 mg / 0.5 (3 ml) UD INH SCH ×4 (07:43→19:22)
[2017-04-10 07:46] LABS: HEMATOCRIT 23.9 % (34.0-47.0); MEAN CELL VOLUME 90.9 fl (81.0-99.0); MEAN CORPUSCULAR HEMOGLOBIN 30.4 pg (27.0-31.0); MEAN CORPUSCULAR HGB CONC 33.4 g/dL (33.0-37.0); RED CELL DISTRIBUTION WIDTH 14.3 % (11.5-14.5); WHITE BLOOD COUNT 6.3 K/uL (4.8-10.8)
[2017-04-10 08:03] LABS: BLOOD UREA NITROGEN 4 mg/dl (7-17); CARBON DIOXIDE 32 mmol/L (22-30); CHLORIDE 95 mmol/L (98-107); GFR AFRICAN-AMERICAN > 60; GLUCOSE,RANDOM 91 mg/dL (65-105); POTASSIUM 3.7 MMOL/L (3.6-5.0); SODIUM 132 mmol/l (132-148)
[2017-04-10 08:16] LABS: T4 10.8 ug/dl (5.5-11.0)
[2017-04-10] MEDS: Enoxaparin 40 mg Syringe SC SCH (09:36)
[2017-04-10] MEDS: Levothyroxine 50 MCG TAB PO SCH (09:38)
[2017-04-10] MEDS: Levothyroxine 200 MCG TAB PO SCH (09:39)
--- NOTE | 2017-04-10 10:22 | RAD ---
PROCEDURE: CHEST RADIOGRAPH, 1 VIEW HISTORY: asthma COMPARISON: Comparison chest 03/30/2017 FINDINGS: LUNGS: Poor inspiration with low lung volumes, crowded bronchovascular markings and mild bibasilar atelectasis left greater than right. There may also be small left-sided effusion. PLEURA: As above. No pneumothorax CARDIOVASCULAR: Normal. OSSEOUS STRUCTURES: Interval right shoulder replacement. VISUALIZED UPPER ABDOMEN: Normal. OTHER FINDINGS: None. IMPRESSION: Poor inspiration with low lung volumes, crowded bronchovascular markings and mild bibasilar atelectasis left greater than right. There may also be small left-sided effusion.
--- NOTE | 2017-04-10 11:47 | CP.PCM.PN ---
Subjective - Date & Time of Evaluation Date of Evaluation: 04/10/17 Time of Evaluation: 11:47 - Subjective Subjective: R SHOULDER PAIN PERSISTS ECCHYMOSIS OF CHEST WALL UNCHANGED Objective - Vital Signs/Intake and Output Vital Signs (last 24 hours): Temp Pulse Resp BP Pulse Ox 97.8 F 82 20 116/61 100 04/10/17 08:35 04/10/17 08:35 04/10/17 08:35 04/10/17 08:35 04/10/17 08:35 - Medications Medications: Current Medications Acetaminophen (Tylenol 325mg Tab) 650 mg PO TID PRN PRN Reason: Pain, moderate (4-7) Acetaminophen/Butalbital/Caffeine (Fioricet) 1 tab PO Q6H PRN PRN Reason: Migraine headache Last Admin: 04/09/17 20:06 Dose: 1 tab Albuterol/Ipratropium (Duoneb 3 Mg/0.5 Mg (3 Ml) Ud) 3 ml INH RQID [facility] Last Admin: 04/10/17 07:43 Dose: 3 ml Alprazolam (Xanax) 0.5 mg PO BID@0900,2100 [facility] Last Admin: 04/10/17 09:46 Dose: 0.5 mg Amitriptyline HCl (Elavil) 50 mg PO BID [facility] Last Admin: 04/10/17 09:38 Dose: 50 mg Aspirin (Ecotrin) 81 mg PO DAILY [facility] Last Admin: 04/10/17 09:37 Dose: 81 mg Calcium Carbonate (Oscal) 500 mg PO BID [facility] Last Admin: 04/10/17 09:38 Dose: 500 mg Cholecalciferol (Vitamin D) 1,000 iu PO CONOR [facility] Demeclocycline HCl (Declomycin) 300 mg PO TID [facility] Last Admin: 04/10/17 09:37 Dose: 300 mg Docusate Sodium (Colace) 100 mg PO BID [facility] Last Admin: 04/10/17 09:37 Dose: 100 mg Duloxetine HCl (Cymbalta) 30 mg PO BID [facility] Last Admin: 04/10/17 09:37 Dose: 30 mg Enoxaparin Sodium (Lovenox) 40 mg SC DAILY [facility] PRN Reason: Protocol Last Admin: 04/10/17 09:36 Dose: 40 mg Ferrous Sulfate (Feosol) 325 mg PO BID [facility] Last Admin: 04/10/17 09:38 Dose: 325 mg Folic Acid (Folic Acid) 1 mg PO DAILY [facility] Last Admin: 04/10/17 09:38 Dose: 1 mg Gabapentin (Neurontin) 300 mg PO TID [facility] Last Admin: 04/10/17 09:38 Dose: 300 mg Levothyroxine Sodium (Synthroid) 50 mcg PO ACB [facility] Levothyroxine Sodium (Synthroid) 200 mcg PO ACB [facility] Meclizine HCl (Antivert) 25 mg PO DAILY [facility] Last Admin: 04/10/17 09:36 Dose: 25 mg Oxycodone HCl (Oxycodone Immediate Release Tab) 10 mg PO Q4 PRN PRN Reason: Pain, moderate (4-7) Last Admin: 04/10/17 10:04 Dose: 10 mg Phenol/Menthol (Phenaseptic 1.4% Throat [place]) 1 spry MT Q2 PRN PRN Reason: sore throat Promethazine HCl/Dextromethorphan (Phenergan Dm Syrup) 10 ml PO Q6 PRN PRN Reason: Cough Last Admin: 04/10/17 05:27 Dose: 10 ml Sucralfate (Carafate Tab) 1 gm PO ACHS [facility] Zolpidem Tartrate (Ambien) 5 mg PO HS [facility] Last Admin: 04/09/17 21:35 Dose: Not Given - Labs Labs: 04/10/17 05:30 04/10/17 05:30 - Constitutional Appears: No Acute Distress - Head Exam Head Exam: ATRAUMATIC, NORMAL INSPECTION, NORMOCEPHALIC - Eye Exam Eye Exam: EOMI, Normal appearance, PERRL Pupil Exam: NORMAL ACCOMODATION, PERRL - ENT Exam ENT Exam: Mucous Membranes Moist, Normal Exam - Neck Exam Neck Exam: Full ROM, Normal Inspection. absent: Lymphadenopathy - Respiratory Exam Respiratory Exam: Clear to Ausculation Bilateral, NORMAL BREATHING PATTERN - Cardiovascular Exam Cardiovascular Exam: REGULAR RHYTHM, +S1, +S2. absent: Murmur - GI/Abdominal Exam GI & Abdominal Exam: Soft, Normal Bowel Sounds. absent: Tenderness - Rectal Exam Rectal Exam: NORMAL INSPECTION - Extremities Exam Extremities Exam: Full ROM, Normal Capillary Refill, Normal Inspection. absent : Joint Swelling, Pedal Edema Additional comments: R ARM IN A SLING - Back Exam Back Exam: NORMAL INSPECTION - Neurological Exam Neurological Exam: Alert, Awake, CN II-XII Intact, Normal Gait, Oriented x3 - Psychiatric Exam Psychiatric exam: Normal Affect, Normal Mood - Skin Skin Exam: Dry, Intact, Warm Additional comments: ECCHYMOSIS OF CHEST WALL Assessment and Plan - Assessment and Plan (Free Text) Assessment: S/P R SHOULDER SURGERY ECCHYMOSIS OF SKIN Plan: CONTINUE SAME RX
--- NOTE | 2017-04-10 19:10 | CP.PCM.CON ---
History of Present Illness - History of Present Illness History of Present Illness: Dr Olea PMR consultation on Jacqui Treadwell born 1960 who has been admitted to [facility] s/p right shoulder replacement. Has some anterior chest wall ecchymosis and some right hand numbness post op Review of Systems - Constitutional Constitutional: absent: Anorexia, Chills - Cardiovascular Cardiovascular: absent: Chest Pain - Respiratory Respiratory: absent: Cough Past Patient History - Infectious Disease Hx of Infectious Diseases: None - Tetanus Immunizations Tetanus Immunization: Unknown - Past Medical History & Family History Past Medical History?: Yes - Past Social History Smoking Status: Light Smoker < 10 Cigarettes Daily Home Situation {Lives}: With Family - CARDIAC Hx Cardiac Disorders: Yes - PULMONARY Hx Chronic Obstructive Pulmonary Disease (COPD): Yes - NEUROLOGICAL Hx Neurological Disorder: Yes Hx Dizziness: Yes Hx Meningitis: Yes Hx Migraine: Yes Hx Vertigo: Yes Other/Comment: [email or web address].TINGLING - HEENT Hx HEENT Problems: No - RENAL Hx Chronic Kidney Disease: No - ENDOCRINE/METABOLIC Hx Endocrine Disorders: Yes Hx Hypothyroidism: Yes Other/Comment: Low sodium, celiac diease - HEMATOLOGICAL/ONCOLOGICAL Hx Blood Disorders: Yes Hx AIDS: No Hx Anemia: Yes Hx Blood Transfusions: Yes Hx Blood Transfusion Reaction: No Hx Human Immunodeficiency Virus (HIV): No - INTEGUMENTARY Hx Dermatological Problems: No - MUSCULOSKELETAL/RHEUMATOLOGICAL Hx Falls: Yes (2016) Hx Fractures: Yes Other/Comment: fibromyalgia - GASTROINTESTINAL Other/Comment: celiac disease - GENITOURINARY/GYNECOLOGICAL Hx Genitourinary Disorders: No - PSYCHIATRIC Hx Psychophysiologic Disorder: Yes Hx Anxiety: Yes Hx Depression: Yes Hx Emotional Abuse: No Hx Physical Abuse: No Hx Substance Use: No - SURGICAL HISTORY Hx Section: Yes (x1) Hx Joint Replacement: Yes (right hip) Hx Orthopedic Surgery: Yes (s/p right shoulder replacement) Other/Comment: craniotomy,hemmorrhoids removed, sinus surgery. right wrist - ANESTHESIA Hx Anesthesia: Yes Hx Anesthesia Reactions: No Hx Malignant Hyperthermia: No Meds Allergies/Adverse Reactions: Allergies Allergy/AdvReac Type Severity Reaction Status Date / Time Penicillins Allergy RASH Verified 04/08/17 13:49 gluten AdvReac RASH Verified 04/08/17 13:49 - Medications Medications: Current Medications Acetaminophen (Tylenol 325mg Tab) 650 mg PO TID PRN PRN Reason: Pain, moderate (4-7) Last Admin: 04/10/17 17:02 Dose: 650 mg Acetaminophen/Butalbital/Caffeine (Fioricet) 1 tab PO Q6H PRN PRN Reason: Migraine headache Last Admin: 04/09/17 20:06 Dose: 1 tab Albuterol/Ipratropium (Duoneb 3 Mg/0.5 Mg (3 Ml) Ud) 3 ml INH RQID [facility] Last Admin: 04/10/17 15:52 Dose: 3 ml Alprazolam (Xanax) 0.5 mg PO BID@0900,2100 [facility] Last Admin: 04/10/17 09:46 Dose: 0.5 mg Amitriptyline HCl (Elavil) 50 mg PO BID [facility] Last Admin: 04/10/17 17:04 Dose: 50 mg Aspirin (Ecotrin) 81 mg PO DAILY [facility] Last Admin: 04/10/17 09:37 Dose: 81 mg Calcium Carbonate (Oscal) 500 mg PO BID [facility] Last Admin: 04/10/17 17:05 Dose: 500 mg Cholecalciferol (Vitamin D) 1,000 iu PO CONOR [facility] Demeclocycline HCl (Declomycin) 300 mg PO TID [facility] Last Admin: 04/10/17 17:03 Dose: 300 mg Docusate Sodium (Colace) 100 mg PO BID [facility] Last Admin: 04/10/17 17:03 Dose: 100 mg Duloxetine HCl (Cymbalta) 30 mg PO BID [facility] Last Admin: 04/10/17 17:04 Dose: 30 mg Enoxaparin Sodium (Lovenox) 40 mg SC DAILY [facility] PRN Reason: Protocol Last Admin: 04/10/17 09:36 Dose: 40 mg Ferrous Sulfate (Feosol) 325 mg PO BID [facility] Last Admin: 04/10/17 17:04 Dose: 325 mg Folic Acid (Folic Acid) 1 mg PO DAILY [facility] Last Admin: 04/10/17 09:38 Dose: 1 mg Gabapentin (Neurontin) 300 mg PO TID [facility] Last Admin: 04/10/17 17:04 Dose: 300 mg Levothyroxine Sodium (Synthroid) 50 mcg PO ACB [facility] Levothyroxine Sodium (Synthroid) 200 mcg PO ACB [facility] Meclizine HCl (Antivert) 25 mg PO DAILY [facility] Last Admin: 04/10/17 09:36 Dose: 25 mg Oxycodone HCl (Oxycodone Immediate Release Tab) 10 mg PO Q4 PRN PRN Reason: Pain, moderate (4-7) Last Admin: 04/10/17 18:18 Dose: 10 mg Phenol/Menthol (Phenaseptic 1.4% Throat [place]) 1 spry MT Q2 PRN PRN Reason: sore throat Promethazine HCl/Dextromethorphan (Phenergan Dm Syrup) 10 ml PO Q6 PRN PRN Reason: Cough Last Admin: 04/10/17 13:27 Dose: 10 ml Sucralfate (Carafate Tab) 1 gm PO ACHS [facility] Last Admin: 04/10/17 17:03 Dose: 1 gm Zolpidem Tartrate (Ambien) 5 mg PO HS [facility] Last Admin: 04/09/17 21:35 Dose: Not Given Physical Exam - Constitutional Appears: Other (right arm sling) - Head Exam Head Exam: ATRAUMATIC, NORMAL INSPECTION, NORMOCEPHALIC - Eye Exam Eye Exam: EOMI - ENT Exam ENT Exam: Mucous Membranes Moist - Respiratory Exam Respiratory Exam: NORMAL BREATHING PATTERN - Cardiovascular Exam Cardiovascular Exam: REGULAR RHYTHM - GI/Abdominal Exam GI & Abdominal Exam: absent: Distended - Neurological Exam Neurological exam: Alert, CN II-XII Intact, Oriented x3 - Psychiatric Exam Psychiatric exam: Anxious (mild) Results - Vital Signs Recent Vital Signs: Last Vital Signs Temp 98.4 F 04/10/17 17:34 Pulse 94 H 04/10/17 17:34 Resp 20 04/10/17 17:34 BP 115/76 04/10/17 17:34 Pulse Ox 92 L 04/10/17 17:34 - Labs Result Diagrams: 04/10/17 05:30 04/10/17 05:30 Labs: Laboratory Results - last 24 hr 04/10/17 04/10/17 05:30 05:30 WBC 6.3 RBC 2.63 L Hgb 8.0 L Hct 23.9 L MCV 90.9 MCH 30.4 MCHC 33.4 RDW 14.3 Plt Count 271 Sodium 132 Potassium 3.7 Chloride 95 L Carbon Dioxide 32 H Anion Gap 9 L BUN 4 L Creatinine 0.5 L Est GFR ( Amer) > 60 Est GFR (Non-Af Amer) > 60 Random Glucose 91 Calcium 9.0 Thyroxine (T4) 10.8 TSH 3rd Generation 1.00 Assessment & Plan - Assessment and Plan (Free Text) Assessment: PT/OT to continue to help increase functional independence Pain: needs further medication and I have started a low dose long acting narcotic Vascular: no evidence of DVT GI: No evidence of constipation or diarrhea with numbness will need to extend the arm at times with the shoulder supported. Patient continues to be an excellent TCU rehabilitation candidate and will have continued focused PT, OT and recreational therapy to help facilitate a safe and appropriate d/c plan
[2017-04-10] MEDS: oxyCODONE 10 mg ER Tab (oxyCONTIN) PO SCH (21:06)
[2017-04-11] MEDS: oxyCODONE 5 mg Immediate Release Tab PO PRN ×4 (02:45→16:10)
[2017-04-11] MEDS: Promethazine DM 12.5 mg-30 mg/10 ml Syrup PO PRN (02:47)
[2017-04-11] MEDS: Levothyroxine 200 MCG TAB PO SCH (06:37)
[2017-04-11] MEDS: Levothyroxine 50 MCG TAB PO SCH (06:37)
[2017-04-11] MEDS: Albuterol-Ipratrop 3 mg / 0.5 (3 ml) UD INH SCH ×4 (07:39→19:29)
[2017-04-11] MEDS: oxyCODONE 10 mg ER Tab (oxyCONTIN) PO SCH ×2 (09:26→20:08)
[2017-04-11] MEDS: Enoxaparin 40 mg Syringe SC SCH (09:29)
[2017-04-11] MEDS: Apap-Butalbital-Caffeine 325-50-40mg Tab PO PRN (17:56)
[2017-04-12] MEDS: oxyCODONE 5 mg Immediate Release Tab PO PRN ×3 (06:17→17:44)
[2017-04-12] MEDS: Levothyroxine 50 MCG TAB PO SCH (06:39)
[2017-04-12] MEDS: Promethazine DM 12.5 mg-30 mg/10 ml Syrup PO PRN ×2 (06:39→12:26)
[2017-04-12] MEDS: Levothyroxine 200 MCG TAB PO SCH (06:39)
[2017-04-12] MEDS: Albuterol-Ipratrop 3 mg / 0.5 (3 ml) UD INH SCH ×4 (07:32→19:23)
[2017-04-12] MEDS: Enoxaparin 40 mg Syringe SC SCH (09:16)
[2017-04-12] MEDS: oxyCODONE 10 mg ER Tab (oxyCONTIN) PO SCH ×2 (09:22→21:04)
[2017-04-12] MEDS: Apap-Butalbital-Caffeine 325-50-40mg Tab PO PRN (12:25)
[2017-04-12] MEDS ORDERED: oxyCODONE 5 mg Immediate Release Tab PO SCH (17:00)
[2017-04-13] MEDS: Levothyroxine 200 MCG TAB PO SCH (06:35)
[2017-04-13] MEDS: Levothyroxine 50 MCG TAB PO SCH (06:36)
[2017-04-13] MEDS: Apap-Butalbital-Caffeine 325-50-40mg Tab PO PRN (06:37)
[2017-04-13] MEDS: Promethazine DM 12.5 mg-30 mg/10 ml Syrup PO PRN ×2 (06:42→21:34)
[2017-04-13] MEDS: Albuterol-Ipratrop 3 mg / 0.5 (3 ml) UD INH SCH ×4 (07:18→19:06)
[2017-04-13] MEDS: oxyCODONE 5 mg Immediate Release Tab PO PRN ×3 (07:34→15:49)
[2017-04-13] MEDS: oxyCODONE 10 mg ER Tab (oxyCONTIN) PO SCH ×2 (08:36→20:07)
--- NOTE | 2017-04-13 16:12 | CP.PCM.PN ---
Subjective - Date & Time of Evaluation Date of Evaluation: 04/13/17 Time of Evaluation: 16:12 - Subjective Subjective: PT PROGRESSING WELL R SHOULDER PAIN LESS C/O SORETHROAT AND COUGH Objective - Vital Signs/Intake and Output Vital Signs (last 24 hours): Temp Pulse Resp BP Pulse Ox 97.7 F 91 H 20 97/71 L 96 04/13/17 08:39 04/13/17 08:39 04/13/17 08:39 04/13/17 08:39 04/13/17 08:39 - Medications Medications: Current Medications Acetaminophen (Tylenol 325mg Tab) 650 mg PO TID PRN PRN Reason: Pain, moderate (4-7) Last Admin: 04/11/17 17:58 Dose: 650 mg Acetaminophen/Butalbital/Caffeine (Fioricet) 1 tab PO Q6H PRN PRN Reason: Migraine headache Last Admin: 04/13/17 06:37 Dose: 1 tab Albuterol/Ipratropium (Duoneb 3 Mg/0.5 Mg (3 Ml) Ud) 3 ml INH RQID [facility] Last Admin: 04/13/17 15:48 Dose: 3 ml Alprazolam (Xanax) 0.5 mg PO Q12H [facility] Last Admin: 04/13/17 08:36 Dose: 0.5 mg Amitriptyline HCl (Elavil) 50 mg PO BID [facility] Last Admin: 04/13/17 08:38 Dose: 50 mg Aspirin (Ecotrin) 81 mg PO DAILY [facility] Last Admin: 04/13/17 08:37 Dose: 81 mg Calcium Carbonate (Oscal) 500 mg PO BID [facility] Last Admin: 04/13/17 08:37 Dose: 500 mg Cholecalciferol (Vitamin D) 1,000 iu PO CONOR [facility] Demeclocycline HCl (Declomycin) 300 mg PO TID [facility] Last Admin: 04/13/17 12:56 Dose: 300 mg Docusate Sodium (Colace) 100 mg PO BID [facility] Last Admin: 04/13/17 08:37 Dose: 100 mg Duloxetine HCl (Cymbalta) 30 mg PO BID [facility] Last Admin: 04/13/17 08:37 Dose: 30 mg Ferrous Sulfate (Feosol) 325 mg PO BID [facility] Last Admin: 04/13/17 08:37 Dose: 325 mg Folic Acid (Folic Acid) 1 mg PO DAILY [facility] Last Admin: 04/13/17 08:39 Dose: 1 mg Gabapentin (Neurontin) 300 mg PO TID [facility] Last Admin: 04/13/17 12:56 Dose: 300 mg Levothyroxine Sodium (Synthroid) 50 mcg PO ACB [facility] Last Admin: 04/13/17 06:36 Dose: 50 mcg Levothyroxine Sodium (Synthroid) 200 mcg PO ACB [facility] Last Admin: 04/13/17 06:35 Dose: 200 mcg Meclizine HCl (Antivert) 25 mg PO DAILY [facility] Last Admin: 04/13/17 08:38 Dose: 25 mg Oxycodone HCl (Oxycontin Extended Release Tab) 10 mg PO Q12 [facility] Stop: 04/13/17 21:01 Last Admin: 04/13/17 08:36 Dose: 10 mg Oxycodone HCl (Oxycodone Immediate Release Tab) 10 mg PO Q4 PRN PRN Reason: Pain, moderate (4-7) Last Admin: 04/13/17 15:49 Dose: 10 mg Phenol/Menthol (Phenaseptic 1.4% Throat [place]) 1 spry MT Q2 PRN PRN Reason: sore throat Promethazine HCl/Dextromethorphan (Phenergan Dm Syrup) 10 ml PO Q6 PRN PRN Reason: Cough Last Admin: 04/13/17 06:42 Dose: 10 ml Sucralfate (Carafate Tab) 1 gm PO [facility] Last Admin: 04/13/17 15:49 Dose: 1 gm - Labs Labs: 04/10/17 05:30 04/10/17 05:30 - Constitutional Appears: No Acute Distress - Head Exam Head Exam: ATRAUMATIC, NORMAL INSPECTION, NORMOCEPHALIC - Eye Exam Eye Exam: EOMI, Normal appearance, PERRL Pupil Exam: NORMAL ACCOMODATION, PERRL - ENT Exam ENT Exam: Mucous Membranes Moist, Normal Exam - Neck Exam Neck Exam: Full ROM, Normal Inspection. absent: Lymphadenopathy - Respiratory Exam Respiratory Exam: Clear to Ausculation Bilateral, NORMAL BREATHING PATTERN - Cardiovascular Exam Cardiovascular Exam: REGULAR RHYTHM, +S1, +S2. absent: Murmur - GI/Abdominal Exam GI & Abdominal Exam: Soft, Normal Bowel Sounds. absent: Tenderness - Rectal Exam Rectal Exam: NORMAL INSPECTION - Extremities Exam Extremities Exam: Full ROM, Normal Capillary Refill, Normal Inspection, Tenderness. absent: Joint Swelling, Pedal Edema Additional comments: R SHOULDER TENDERNESS - Back Exam Back Exam: NORMAL INSPECTION - Neurological Exam Neurological Exam: Alert, Awake, CN II-XII Intact, Normal Gait, Oriented x3 - Psychiatric Exam Psychiatric exam: Normal Affect, Normal Mood - Skin Skin Exam: Dry, Intact, Normal Color, Warm Assessment and Plan - Assessment and Plan (Free Text) Assessment: S/P R SHOULDER SURGERY UNSTEADY GAIT URI Plan: CONTINUE PT/OT ORAL [facility]
--- NOTE | 2017-04-13 17:39 | CP.PCM.PN ---
Subjective - Date & Time of Evaluation Date of Evaluation: 04/13/17 Time of Evaluation: 17:38 - Subjective Subjective: Patient seen in room still with some hand numbness concerned about safety and falls at home continue with current care Objective - Vital Signs/Intake and Output Vital Signs (last 24 hours): Temp Pulse Resp BP Pulse Ox 97.9 F 96 H 20 103/73 97 04/13/17 16:23 04/13/17 16:23 04/13/17 16:23 04/13/17 16:23 04/13/17 16:23 - Medications Medications: Current Medications Acetaminophen (Tylenol 325mg Tab) 650 mg PO TID PRN PRN Reason: Pain, moderate (4-7) Last Admin: 04/11/17 17:58 Dose: 650 mg Acetaminophen/Butalbital/Caffeine (Fioricet) 1 tab PO Q6H PRN PRN Reason: Migraine headache Last Admin: 04/13/17 06:37 Dose: 1 tab Albuterol/Ipratropium (Duoneb 3 Mg/0.5 Mg (3 Ml) Ud) 3 ml INH RQID [facility] Last Admin: 04/13/17 15:48 Dose: 3 ml Alprazolam (Xanax) 0.5 mg PO Q12H [facility] Last Admin: 04/13/17 08:36 Dose: 0.5 mg Amitriptyline HCl (Elavil) 50 mg PO BID [facility] Last Admin: 04/13/17 17:32 Dose: 50 mg Aspirin (Ecotrin) 81 mg PO DAILY [facility] Last Admin: 04/13/17 08:37 Dose: 81 mg Calcium Carbonate (Oscal) 500 mg PO BID [facility] Last Admin: 04/13/17 17:32 Dose: 500 mg Cholecalciferol (Vitamin D) 1,000 iu PO CONOR [facility] Demeclocycline HCl (Declomycin) 300 mg PO TID [facility] Last Admin: 04/13/17 17:33 Dose: 300 mg Docusate Sodium (Colace) 100 mg PO BID [facility] Last Admin: 04/13/17 17:33 Dose: 100 mg Duloxetine HCl (Cymbalta) 30 mg PO BID [facility] Last Admin: 04/13/17 17:32 Dose: 30 mg Enoxaparin Sodium (Lovenox) 40 mg SC DAILY [facility] PRN Reason: Protocol Ferrous Sulfate (Feosol) 325 mg PO BID [facility] Last Admin: 04/13/17 17:32 Dose: 325 mg Folic Acid (Folic Acid) 1 mg PO DAILY [facility] Last Admin: 04/13/17 08:39 Dose: 1 mg Gabapentin (Neurontin) 300 mg PO TID [facility] Last Admin: 04/13/17 17:33 Dose: 300 mg Levothyroxine Sodium (Synthroid) 50 mcg PO ACB [facility] Last Admin: 04/13/17 06:36 Dose: 50 mcg Levothyroxine Sodium (Synthroid) 200 mcg PO ACB [facility] Last Admin: 04/13/17 06:35 Dose: 200 mcg Meclizine HCl (Antivert) 25 mg PO DAILY [facility] Last Admin: 04/13/17 08:38 Dose: 25 mg Oxycodone HCl (Oxycontin Extended Release Tab) 10 mg PO Q12 [facility] Stop: 04/13/17 21:01 Last Admin: 04/13/17 08:36 Dose: 10 mg Oxycodone HCl (Oxycodone Immediate Release Tab) 10 mg PO Q4 PRN PRN Reason: Pain, moderate (4-7) Last Admin: 04/13/17 15:49 Dose: 10 mg Phenol/Menthol (Phenaseptic 1.4% Throat [place]) 1 spry MT Q2 PRN PRN Reason: sore throat Promethazine HCl/Dextromethorphan (Phenergan Dm Syrup) 10 ml PO Q6 PRN PRN Reason: Cough Last Admin: 04/13/17 06:42 Dose: 10 ml Sucralfate (Carafate Tab) 1 gm PO ACHS [facility] Last Admin: 04/13/17 15:49 Dose: 1 gm - Labs Labs: 04/10/17 05:30 04/10/17 05:30
[2017-04-14] MEDS: Levothyroxine 50 MCG TAB PO SCH (06:30)
[2017-04-14] MEDS: Levothyroxine 200 MCG TAB PO SCH (06:30)
[2017-04-14] MEDS: oxyCODONE 5 mg Immediate Release Tab PO PRN ×5 (06:30→22:11)
[2017-04-14] MEDS: Albuterol-Ipratrop 3 mg / 0.5 (3 ml) UD INH SCH ×4 (08:21→19:06)
[2017-04-14] MEDS: Enoxaparin 40 mg Syringe SC SCH (08:30)
[2017-04-14] MEDS: oxyCODONE 10 mg ER Tab (oxyCONTIN) PO SCH (08:31)
--- NOTE | 2017-04-14 10:24 | CP.PCM.PN ---
Subjective - Date & Time of Evaluation Date of Evaluation: 04/14/17 Time of Evaluation: 10:24 - Subjective Subjective: NO NEW CLINICAL FINDINGS PERTAKES IN PT/OT WILL CONTINUE PRESENT RX MAY NEED PO IRON SUPPLEMENTS Objective - Vital Signs/Intake and Output Vital Signs (last 24 hours): Temp Pulse Resp BP Pulse Ox 98.1 F 87 20 100/75 100 04/14/17 08:10 04/14/17 08:10 04/14/17 08:10 04/14/17 08:10 04/14/17 08:10 - Medications Medications: Current Medications Acetaminophen (Tylenol 325mg Tab) 650 mg PO TID PRN PRN Reason: Pain, moderate (4-7) Last Admin: 04/11/17 17:58 Dose: 650 mg Acetaminophen/Butalbital/Caffeine (Fioricet) 1 tab PO Q6H PRN PRN Reason: Migraine headache Last Admin: 04/13/17 06:37 Dose: 1 tab Albuterol/Ipratropium (Duoneb 3 Mg/0.5 Mg (3 Ml) Ud) 3 ml INH RQID [facility] Last Admin: 04/14/17 08:21 Dose: 3 ml Alprazolam (Xanax) 0.5 mg PO Q12H [facility] Last Admin: 04/14/17 08:31 Dose: 0.5 mg Amitriptyline HCl (Elavil) 50 mg PO BID [facility] Last Admin: 04/14/17 08:31 Dose: 50 mg Aspirin (Ecotrin) 81 mg PO DAILY [facility] Last Admin: 04/14/17 08:33 Dose: 81 mg Calcium Carbonate (Oscal) 500 mg PO BID [facility] Last Admin: 04/14/17 08:33 Dose: 500 mg Cholecalciferol (Vitamin D) 1,000 iu PO CONOR [facility] Demeclocycline HCl (Declomycin) 300 mg PO TID [facility] Last Admin: 04/14/17 08:32 Dose: 300 mg Docusate Sodium (Colace) 100 mg PO BID [facility] Last Admin: 04/14/17 08:30 Dose: 100 mg Duloxetine HCl (Cymbalta) 30 mg PO BID [facility] Last Admin: 04/14/17 08:31 Dose: 30 mg Enoxaparin Sodium (Lovenox) 40 mg SC DAILY [facility] PRN Reason: Protocol Last Admin: 04/14/17 08:30 Dose: 40 mg Ferrous Sulfate (Feosol) 325 mg PO BID [facility] Last Admin: 04/14/17 08:33 Dose: 325 mg Folic Acid (Folic Acid) 1 mg PO DAILY [facility] Last Admin: 04/14/17 08:33 Dose: 1 mg Gabapentin (Neurontin) 300 mg PO TID [facility] Last Admin: 04/14/17 08:33 Dose: 300 mg Levothyroxine Sodium (Synthroid) 50 mcg PO ACB [facility] Last Admin: 04/14/17 06:30 Dose: 50 mcg Levothyroxine Sodium (Synthroid) 200 mcg PO ACB [facility] Last Admin: 04/14/17 06:30 Dose: 200 mcg Meclizine HCl (Antivert) 25 mg PO DAILY [facility] Last Admin: 04/14/17 08:33 Dose: 25 mg Oxycodone HCl (Oxycodone Immediate Release Tab) 10 mg PO Q4 PRN PRN Reason: Pain, moderate (4-7) Last Admin: 04/14/17 10:17 Dose: 10 mg Oxycodone HCl (Oxycontin Extended Release Tab) 10 mg PO Q12 [facility] Stop: 04/17/17 09:01 Last Admin: 04/14/17 08:31 Dose: 10 mg Phenol/Menthol (Phenaseptic 1.4% Throat [place]) 1 spry MT Q2 PRN PRN Reason: sore throat Promethazine HCl/Dextromethorphan (Phenergan Dm Syrup) 10 ml PO Q6 PRN PRN Reason: Cough Last Admin: 04/13/17 21:34 Dose: 10 ml Sucralfate (Carafate Tab) 1 gm PO [facility] Last Admin: 04/14/17 06:30 Dose: 1 gm Zolpidem Tartrate (Ambien) 5 mg PO HS PRN PRN Reason: Insomnia Last Admin: 04/13/17 21:32 Dose: 5 mg - Labs Labs: 04/10/17 05:30 04/10/17 05:30
[2017-04-14] MEDS: levoFLOXacin 500 MG TAB PO SCH (17:38)
[2017-04-15] MEDS: oxyCODONE 10 mg ER Tab (oxyCONTIN) PO SCH ×3 (00:15→20:38)
[2017-04-15] MEDS: oxyCODONE 5 mg Immediate Release Tab PO PRN ×4 (03:13→16:27)
[2017-04-15] MEDS: Levothyroxine 200 MCG TAB PO SCH (06:59)
[2017-04-15] MEDS: Albuterol-Ipratrop 3 mg / 0.5 (3 ml) UD INH SCH ×4 (07:44→19:42)
[2017-04-15] MEDS: levoFLOXacin 500 MG TAB PO SCH (08:50)
[2017-04-15] MEDS: Enoxaparin 40 mg Syringe SC SCH (08:50)
[2017-04-15] MEDS ORDERED: levoFLOXacin 500 MG TAB PO SCH (09:00)
[2017-04-15] MEDS: Promethazine DM 12.5 mg-30 mg/10 ml Syrup PO PRN ×2 (09:11→22:13)
--- NOTE | 2017-04-15 09:27 | CP.PCM.PN ---
Subjective - Date & Time of Evaluation Date of Evaluation: 04/15/17 Time of Evaluation: 09:26 - Subjective Subjective: C/O R SHOULDER PAIN Objective - Vital Signs/Intake and Output Vital Signs (last 24 hours): Temp Pulse Resp BP Pulse Ox 98.1 F 97 H 20 102/70 99 04/15/17 08:37 04/15/17 08:37 04/15/17 08:37 04/15/17 08:37 04/15/17 08:37 - Medications Medications: Current Medications Acetaminophen (Tylenol 325mg Tab) 650 mg PO TID PRN PRN Reason: Pain, moderate (4-7) Last Admin: 04/14/17 12:23 Dose: 650 mg Acetaminophen/Butalbital/Caffeine (Fioricet) 1 tab PO Q6H PRN PRN Reason: Migraine headache Last Admin: 04/13/17 06:37 Dose: 1 tab Albuterol/Ipratropium (Duoneb 3 Mg/0.5 Mg (3 Ml) Ud) 3 ml INH RQID [facility] Last Admin: 04/15/17 07:44 Dose: 3 ml Alprazolam (Xanax) 0.5 mg PO Q12H [facility] Last Admin: 04/15/17 08:52 Dose: 0.5 mg Amitriptyline HCl (Elavil) 50 mg PO BID [facility] Last Admin: 04/15/17 08:49 Dose: 50 mg Aspirin (Ecotrin) 81 mg PO DAILY [facility] Last Admin: 04/15/17 08:48 Dose: 81 mg Calcium Carbonate (Oscal) 500 mg PO BID [facility] Last Admin: 04/15/17 08:50 Dose: 500 mg Cholecalciferol (Vitamin D) 1,000 iu PO CONOR [facility] Last Admin: 04/15/17 08:52 Dose: 1,000 iu Demeclocycline HCl (Declomycin) 300 mg PO TID [facility] Last Admin: 04/15/17 08:47 Dose: 300 mg Docusate Sodium (Colace) 100 mg PO BID [facility] Last Admin: 04/15/17 08:46 Dose: 100 mg Duloxetine HCl (Cymbalta) 30 mg PO BID [facility] Last Admin: 04/15/17 08:47 Dose: 30 mg Enoxaparin Sodium (Lovenox) 40 mg SC DAILY [facility] PRN Reason: Protocol Last Admin: 04/15/17 08:50 Dose: 40 mg Ferrous Sulfate (Feosol) 325 mg PO BID [facility] Last Admin: 04/15/17 08:48 Dose: 325 mg Folic Acid (Folic Acid) 1 mg PO DAILY [facility] Last Admin: 04/15/17 08:48 Dose: 1 mg Gabapentin (Neurontin) 300 mg PO TID [facility] Last Admin: 04/15/17 08:50 Dose: 300 mg Levofloxacin (Levaquin) 500 mg PO DAILY [facility] Last Admin: 04/15/17 08:50 Dose: 500 mg Levothyroxine Sodium (Synthroid) 50 mcg PO ACB [facility] Last Admin: 04/14/17 06:30 Dose: 50 mcg Levothyroxine Sodium (Synthroid) 200 mcg PO ACB [facility] Last Admin: 04/15/17 06:59 Dose: 200 mcg Meclizine HCl (Antivert) 25 mg PO DAILY [facility] Last Admin: 04/15/17 08:45 Dose: 25 mg Oxycodone HCl (Oxycodone Immediate Release Tab) 10 mg PO Q4 PRN PRN Reason: Pain, moderate (4-7) Last Admin: 04/15/17 06:57 Dose: 10 mg Oxycodone HCl (Oxycontin Extended Release Tab) 10 mg PO Q12 [facility] Stop: 04/17/17 09:01 Last Admin: 04/15/17 08:50 Dose: 10 mg Phenol/Menthol (Phenaseptic 1.4% Throat [place]) 1 spry MT Q2 PRN PRN Reason: sore throat Promethazine HCl/Dextromethorphan (Phenergan Dm Syrup) 10 ml PO Q6 PRN PRN Reason: Cough Last Admin: 04/15/17 09:11 Dose: 10 ml Sucralfate (Carafate Tab) 1 gm PO ACHS [facility] Last Admin: 04/15/17 06:59 Dose: 1 gm Zolpidem Tartrate (Ambien) 5 mg PO HS PRN PRN Reason: Insomnia Last Admin: 04/13/17 21:32 Dose: 5 mg - Labs Labs: 04/10/17 05:30 04/10/17 05:30 - Constitutional Appears: No Acute Distress - Head Exam Head Exam: ATRAUMATIC, NORMAL INSPECTION, NORMOCEPHALIC - Eye Exam Eye Exam: EOMI, Normal appearance, PERRL Pupil Exam: NORMAL ACCOMODATION, PERRL - ENT Exam ENT Exam: Mucous Membranes Moist, Normal Exam - Neck Exam Neck Exam: Full ROM, Normal Inspection. absent: Lymphadenopathy - Respiratory Exam Respiratory Exam: Clear to Ausculation Bilateral, NORMAL BREATHING PATTERN - Cardiovascular Exam Cardiovascular Exam: REGULAR RHYTHM, +S1, +S2. absent: Murmur - GI/Abdominal Exam GI & Abdominal Exam: Soft, Normal Bowel Sounds. absent: Tenderness - Rectal Exam Rectal Exam: NORMAL INSPECTION - Extremities Exam Extremities Exam: Full ROM, Normal Capillary Refill, Normal Inspection. absent : Joint Swelling, Pedal Edema - Back Exam Back Exam: NORMAL INSPECTION - Neurological Exam Neurological Exam: Alert, Awake, CN II-XII Intact, Normal Gait, Oriented x3 - Psychiatric Exam Psychiatric exam: Normal Affect, Normal Mood - Skin Skin Exam: Dry, Intact, Normal Color, Warm Assessment and Plan - Assessment and Plan (Free Text) Assessment: S/P R SHOULDER SURGERY Plan: CONTINUE SAME RX
[2017-04-15] MEDS: Levothyroxine 50 MCG TAB PO SCH (20:40)
[2017-04-16] MEDS: oxyCODONE 5 mg Immediate Release Tab PO PRN ×4 (02:58→15:48)
[2017-04-16] MEDS: Levothyroxine 50 MCG TAB PO SCH (07:09)
[2017-04-16] MEDS: Levothyroxine 200 MCG TAB PO SCH (07:10)
[2017-04-16] MEDS: Albuterol-Ipratrop 3 mg / 0.5 (3 ml) UD INH SCH ×3 (08:29→15:50)
[2017-04-16] MEDS: levoFLOXacin 500 MG TAB PO SCH (09:37)
[2017-04-16] MEDS: Enoxaparin 40 mg Syringe SC SCH (09:37)
[2017-04-16] MEDS: oxyCODONE 10 mg ER Tab (oxyCONTIN) PO SCH ×2 (09:38→21:19)
--- NOTE | 2017-04-16 15:23 | CP.PCM.PN ---
Subjective - Date & Time of Evaluation Date of Evaluation: 04/16/17 Time of Evaluation: 15:23 - Subjective Subjective: LESS R SHOULDER PAIN RASH OF R [place] Objective - Vital Signs/Intake and Output Vital Signs (last 24 hours): Temp Pulse Resp BP Pulse Ox 98.2 F 97 H 20 105/65 99 04/16/17 08:28 04/16/17 11:00 04/16/17 08:28 04/16/17 11:00 04/16/17 11:00 - Medications Medications: Current Medications Acetaminophen (Tylenol 325mg Tab) 650 mg PO TID PRN PRN Reason: Pain, moderate (4-7) Last Admin: 04/15/17 14:43 Dose: 650 mg Acetaminophen/Butalbital/Caffeine (Fioricet) 1 tab PO Q6H PRN PRN Reason: Migraine headache Last Admin: 04/13/17 06:37 Dose: 1 tab Albuterol/Ipratropium (Duoneb 3 Mg/0.5 Mg (3 Ml) Ud) 3 ml INH RQID [facility] Last Admin: 04/16/17 11:38 Dose: 3 ml Alprazolam (Xanax) 0.5 mg PO Q12H [facility] Last Admin: 04/16/17 09:39 Dose: 0.5 mg Amitriptyline HCl (Elavil) 50 mg PO BID [facility] Last Admin: 04/16/17 09:37 Dose: 50 mg Aspirin (Ecotrin) 81 mg PO DAILY [facility] Last Admin: 04/16/17 09:37 Dose: 81 mg Calcium Carbonate (Oscal) 500 mg PO BID [facility] Last Admin: 04/16/17 09:38 Dose: 500 mg Cholecalciferol (Vitamin D) 1,000 iu PO CONOR [facility] Last Admin: 04/15/17 08:52 Dose: 1,000 iu Demeclocycline HCl (Declomycin) 300 mg PO TID [facility] Last Admin: 04/16/17 12:39 Dose: 300 mg Docusate Sodium (Colace) 100 mg PO BID [facility] Last Admin: 04/16/17 09:36 Dose: 100 mg Duloxetine HCl (Cymbalta) 30 mg PO BID [facility] Last Admin: 04/16/17 09:36 Dose: 30 mg Enoxaparin Sodium (Lovenox) 40 mg SC DAILY [facility] PRN Reason: Protocol Last Admin: 04/16/17 09:37 Dose: 40 mg Ferrous Sulfate (Feosol) 325 mg PO BID [facility] Last Admin: 04/16/17 09:37 Dose: 325 mg Folic Acid (Folic Acid) 1 mg PO DAILY [facility] Last Admin: 04/16/17 09:37 Dose: 1 mg Gabapentin (Neurontin) 300 mg PO TID [facility] Last Admin: 04/16/17 12:39 Dose: 300 mg Levofloxacin (Levaquin) 500 mg PO DAILY [facility] Last Admin: 04/16/17 09:37 Dose: 500 mg Levothyroxine Sodium (Synthroid) 50 mcg PO ACB [facility] Last Admin: 04/16/17 07:09 Dose: 50 mcg Levothyroxine Sodium (Synthroid) 200 mcg PO ACB [facility] Last Admin: 04/16/17 07:10 Dose: 200 mcg Meclizine HCl (Antivert) 25 mg PO DAILY [facility] Last Admin: 04/16/17 09:35 Dose: 25 mg Nystatin (Nystop Topical Powder) 1 applic TOP TID [facility] Last Admin: 04/16/17 12:39 Dose: 1 applic Oxycodone HCl (Oxycodone Immediate Release Tab) 10 mg PO Q4 PRN PRN Reason: Pain, moderate (4-7) Last Admin: 04/16/17 11:29 Dose: 10 mg Oxycodone HCl (Oxycontin Extended Release Tab) 10 mg PO Q12 [facility] Stop: 04/17/17 09:01 Last Admin: 04/16/17 09:38 Dose: 10 mg Phenol/Menthol (Phenaseptic 1.4% Throat [place]) 1 spry MT Q2 PRN PRN Reason: sore throat Promethazine HCl/Dextromethorphan (Phenergan Dm Syrup) 10 ml PO Q6 PRN PRN Reason: Cough Last Admin: 04/15/17 22:13 Dose: 10 ml Sucralfate (Carafate Tab) 1 gm PO ACHS [facility] Last Admin: 04/16/17 12:30 Dose: 1 gm Zolpidem Tartrate (Ambien) 5 mg PO HS PRN PRN Reason: Insomnia Last Admin: 04/15/17 23:47 Dose: 5 mg - Labs Labs: 04/10/17 05:30 04/10/17 05:30 - Constitutional Appears: Well - Head Exam Head Exam: ATRAUMATIC, NORMAL INSPECTION, NORMOCEPHALIC - Eye Exam Eye Exam: EOMI, Normal appearance, PERRL Pupil Exam: NORMAL ACCOMODATION, PERRL - ENT Exam ENT Exam: Mucous Membranes Moist, Normal Exam - Neck Exam Neck Exam: Full ROM, Normal Inspection. absent: Lymphadenopathy - Respiratory Exam Respiratory Exam: Clear to Ausculation Bilateral, NORMAL BREATHING PATTERN - Cardiovascular Exam Cardiovascular Exam: REGULAR RHYTHM, +S1, +S2. absent: Murmur - GI/Abdominal Exam GI & Abdominal Exam: Soft, Normal Bowel Sounds. absent: Tenderness - Rectal Exam Rectal Exam: NORMAL INSPECTION - Extremities Exam Extremities Exam: Full ROM, Normal Capillary Refill, Normal Inspection. absent : Joint Swelling, Pedal Edema - Back Exam Back Exam: NORMAL INSPECTION - Neurological Exam Neurological Exam: Abnormal Gait, Alert, Awake, CN II-XII Intact, Oriented x3 - Psychiatric Exam Psychiatric exam: Normal Affect, Normal Mood - Skin Skin Exam: Dry, Intact, Normal Color, Rash, Warm Assessment and Plan - Assessment and Plan (Free Text) Assessment: S/P R SHOULDER REPLACEMENT HEADACHES SKIN RASH Plan: SEE ORDERS
[2017-04-16] MEDS: Promethazine DM 12.5 mg-30 mg/10 ml Syrup PO PRN (15:43)
[2017-04-17] MEDS: oxyCODONE 5 mg Immediate Release Tab PO PRN ×3 (02:07→17:04)
[2017-04-17] MEDS: Levothyroxine 50 MCG TAB PO SCH (06:38)
[2017-04-17] MEDS: Levothyroxine 200 MCG TAB PO SCH (06:38)
[2017-04-17] MEDS: Enoxaparin 40 mg Syringe SC SCH (08:25)
[2017-04-17] MEDS: oxyCODONE 10 mg ER Tab (oxyCONTIN) PO SCH ×2 (08:28→20:10)
[2017-04-17] MEDS: levoFLOXacin 500 MG TAB PO SCH (08:30)
[2017-04-17] MEDS: Apap-Butalbital-Caffeine 325-50-40mg Tab PO PRN ×2 (09:40→21:16)
--- NOTE | 2017-04-17 10:37 | CP.PCM.PN ---
Subjective - Date & Time of Evaluation Date of Evaluation: 04/17/17 Time of Evaluation: 10:37 - Subjective Subjective: AMBULATING WITHOUT ASSISTANCE R SHOULDER PAIN PRESENT BUT LESS C/O NASAL CONGESTION Objective - Vital Signs/Intake and Output Vital Signs (last 24 hours): Temp Pulse Resp BP Pulse Ox 97.7 F 98 H 20 107/73 95 04/17/17 08:28 04/17/17 08:28 04/17/17 08:28 04/17/17 08:28 04/17/17 08:28 - Medications Medications: Current Medications Acetaminophen (Tylenol 325mg Tab) 650 mg PO TID PRN PRN Reason: Pain, moderate (4-7) Last Admin: 04/15/17 14:43 Dose: 650 mg Acetaminophen/Butalbital/Caffeine (Fioricet) 1 tab PO Q6H PRN PRN Reason: Migraine headache Last Admin: 04/17/17 09:40 Dose: 1 tab Alprazolam (Xanax) 0.5 mg PO Q12 [facility] Last Admin: 04/17/17 08:28 Dose: 0.5 mg Amitriptyline HCl (Elavil) 50 mg PO BID [facility] Last Admin: 04/17/17 08:25 Dose: 50 mg Aspirin (Ecotrin) 81 mg PO DAILY [facility] Last Admin: 04/17/17 08:26 Dose: 81 mg Calcium Carbonate (Oscal) 500 mg PO BID [facility] Last Admin: 04/17/17 08:27 Dose: 500 mg Cholecalciferol (Vitamin D) 1,000 iu PO CONOR [facility] Last Admin: 04/15/17 08:52 Dose: 1,000 iu Demeclocycline HCl (Declomycin) 300 mg PO TID [facility] Last Admin: 04/17/17 08:26 Dose: 300 mg Docusate Sodium (Colace) 100 mg PO BID [facility] Last Admin: 04/17/17 08:25 Dose: 100 mg Duloxetine HCl (Cymbalta) 30 mg PO BID [facility] Last Admin: 04/17/17 08:26 Dose: 30 mg Enoxaparin Sodium (Lovenox) 40 mg SC DAILY [facility] PRN Reason: Protocol Last Admin: 04/17/17 08:25 Dose: 40 mg Ferrous Sulfate (Feosol) 325 mg PO BID [facility] Last Admin: 04/17/17 08:27 Dose: 325 mg Folic Acid (Folic Acid) 1 mg PO DAILY [facility] Last Admin: 04/17/17 08:27 Dose: 1 mg Gabapentin (Neurontin) 300 mg PO TID [facility] Last Admin: 04/17/17 08:27 Dose: 300 mg Levofloxacin (Levaquin) 500 mg PO DAILY [facility] Last Admin: 04/17/17 08:30 Dose: 500 mg Levothyroxine Sodium (Synthroid) 50 mcg PO ACB [facility] Last Admin: 04/17/17 06:38 Dose: 50 mcg Levothyroxine Sodium (Synthroid) 200 mcg PO ACB [facility] Last Admin: 04/17/17 06:38 Dose: 200 mcg Meclizine HCl (Antivert) 25 mg PO DAILY [facility] Last Admin: 04/17/17 08:29 Dose: 25 mg Nystatin (Nystop Topical Powder) 1 applic TOP TID [facility] Last Admin: 04/17/17 08:30 Dose: 1 applic Oxycodone HCl (Oxycodone Immediate Release Tab) 10 mg PO Q6 PRN PRN Reason: Pain, severe (8-10) Last Admin: 04/17/17 02:07 Dose: 10 mg Phenol/Menthol (Phenaseptic 1.4% Throat [place]) 1 spry MT Q2 PRN PRN Reason: sore throat Promethazine HCl/Dextromethorphan (Phenergan Dm Syrup) 10 ml PO Q6 PRN PRN Reason: Cough Last Admin: 04/16/17 15:43 Dose: 10 ml Sucralfate (Carafate Tab) 1 gm PO [facility] Last Admin: 04/17/17 06:37 Dose: 1 gm Zolpidem Tartrate (Ambien) 5 mg PO HS PRN PRN Reason: Insomnia Last Admin: 04/16/17 22:01 Dose: 5 mg - Labs Labs: 04/10/17 05:30 04/10/17 05:30 - Constitutional Appears: No Acute Distress - Head Exam Head Exam: ATRAUMATIC, NORMAL INSPECTION, NORMOCEPHALIC - Eye Exam Eye Exam: EOMI, Normal appearance, PERRL Pupil Exam: NORMAL ACCOMODATION, PERRL - ENT Exam ENT Exam: Mucous Membranes Moist, Normal Exam - Neck Exam Neck Exam: Full ROM, Normal Inspection. absent: Lymphadenopathy - Respiratory Exam Respiratory Exam: Clear to Ausculation Bilateral, NORMAL BREATHING PATTERN - Cardiovascular Exam Cardiovascular Exam: REGULAR RHYTHM, +S1, +S2. absent: Murmur - GI/Abdominal Exam GI & Abdominal Exam: Soft, Normal Bowel Sounds. absent: Tenderness - Rectal Exam Rectal Exam: NORMAL INSPECTION - Extremities Exam Extremities Exam: Full ROM, Normal Capillary Refill, Normal Inspection, Tenderness. absent: Joint Swelling, Pedal Edema Additional comments: R SHOULDER PAIN - Back Exam Back Exam: NORMAL INSPECTION - Neurological Exam Neurological Exam: Alert, Awake, CN II-XII Intact, Normal Gait, Oriented x3 - Psychiatric Exam Psychiatric exam: Normal Affect, Normal Mood - Skin Skin Exam: Dry, Intact, Normal Color, Warm Assessment and Plan - Assessment and Plan (Free Text) Assessment: S/P R SHOULDER [id number] NASAL CONGESTION Plan: SEE ORDERS
[2017-04-17] MEDS: Promethazine DM 12.5 mg-30 mg/10 ml Syrup PO PRN (20:13)
[2017-04-18] MEDS: oxyCODONE 5 mg Immediate Release Tab PO PRN ×4 (01:13→17:33)
[2017-04-18] MEDS: Levothyroxine 200 MCG TAB PO SCH (06:30)
[2017-04-18] MEDS: Levothyroxine 50 MCG TAB PO SCH (06:31)
[2017-04-18] MEDS: Promethazine DM 12.5 mg-30 mg/10 ml Syrup PO PRN (09:33)
[2017-04-18] MEDS: oxyCODONE 10 mg ER Tab (oxyCONTIN) PO SCH ×2 (09:34→21:55)
[2017-04-18] MEDS: levoFLOXacin 500 MG TAB PO SCH (09:34)
[2017-04-18] MEDS: Enoxaparin 40 mg Syringe SC SCH (09:36)
[2017-04-18 10:16] LABS: HEMATOCRIT 25.7 % (34.0-47.0); MEAN CELL VOLUME 90.9 fl (81.0-99.0); MEAN CORPUSCULAR HEMOGLOBIN 29.8 pg (27.0-31.0); MEAN CORPUSCULAR HGB CONC 32.8 g/dL (33.0-37.0); RED CELL DISTRIBUTION WIDTH 13.9 % (11.5-14.5); WHITE BLOOD COUNT 7.2 K/uL (4.8-10.8)
--- NOTE | 2017-04-18 10:46 | CP.PCM.PN ---
Subjective - Date & Time of Evaluation Date of Evaluation: 04/18/17 Time of Evaluation: 10:46 - Subjective Subjective: CONTINUES TO IMPROVE CLINICALLY C/O CONSTIPATION Objective - Vital Signs/Intake and Output Vital Signs (last 24 hours): Temp Pulse Resp BP Pulse Ox 97.9 F 92 H 20 124/68 97 04/18/17 09:36 04/18/17 09:36 04/18/17 09:36 04/18/17 09:36 04/18/17 09:36 - Medications Medications: Current Medications Acetaminophen (Tylenol 325mg Tab) 650 mg PO TID PRN PRN Reason: Pain, moderate (4-7) Last Admin: 04/15/17 14:43 Dose: 650 mg Acetaminophen/Butalbital/Caffeine (Fioricet) 1 tab PO Q6H PRN PRN Reason: Migraine headache Last Admin: 04/17/17 21:16 Dose: 1 tab Alprazolam (Xanax) 0.5 mg PO Q12 [facility] Last Admin: 04/18/17 09:33 Dose: 0.5 mg Amitriptyline HCl (Elavil) 50 mg PO BID [facility] Last Admin: 04/18/17 09:34 Dose: 50 mg Aspirin (Ecotrin) 81 mg PO DAILY [facility] Last Admin: 04/18/17 09:33 Dose: 81 mg Calcium Carbonate (Oscal) 500 mg PO BID [facility] Last Admin: 04/18/17 09:34 Dose: 500 mg Cholecalciferol (Vitamin D) 1,000 iu PO CONOR [facility] Last Admin: 04/15/17 08:52 Dose: 1,000 iu Demeclocycline HCl (Declomycin) 300 mg PO TID [facility] Last Admin: 04/18/17 09:33 Dose: 300 mg Docusate Sodium (Colace) 100 mg PO BID [facility] Last Admin: 04/18/17 09:34 Dose: 100 mg Duloxetine HCl (Cymbalta) 30 mg PO BID [facility] Last Admin: 04/18/17 09:34 Dose: 30 mg Enoxaparin Sodium (Lovenox) 40 mg SC DAILY [facility] PRN Reason: Protocol Last Admin: 04/18/17 09:36 Dose: 40 mg Ferrous Sulfate (Feosol) 325 mg PO BID [facility] Last Admin: 04/18/17 09:36 Dose: 325 mg Fluticasone Propionate (Flonase) 1 spr JESSICA BID [facility] Last Admin: 04/18/17 09:38 Dose: 1 spr Folic Acid (Folic Acid) 1 mg PO DAILY [facility] Last Admin: 04/18/17 09:34 Dose: 1 mg Gabapentin (Neurontin) 300 mg PO TID [facility] Last Admin: 04/18/17 09:36 Dose: 300 mg Levofloxacin (Levaquin) 500 mg PO DAILY [facility] Last Admin: 04/18/17 09:34 Dose: 500 mg Levothyroxine Sodium (Synthroid) 50 mcg PO ACB [facility] Last Admin: 04/18/17 06:31 Dose: 50 mcg Levothyroxine Sodium (Synthroid) 200 mcg PO ACB [facility] Last Admin: 04/18/17 06:30 Dose: 200 mcg Meclizine HCl (Antivert) 25 mg PO DAILY [facility] Last Admin: 04/18/17 09:33 Dose: 25 mg Nystatin (Nystop Topical Powder) 1 applic TOP TID [facility] Last Admin: 04/18/17 09:33 Dose: 1 applic Oxycodone HCl (Oxycodone Immediate Release Tab) 10 mg PO Q6 PRN PRN Reason: Pain, severe (8-10) Last Admin: 04/18/17 06:23 Dose: 10 mg Oxycodone HCl (Oxycontin Extended Release Tab) 10 mg PO Q12 [facility] Stop: 04/20/17 21:01 Last Admin: 04/18/17 09:34 Dose: 10 mg Phenol/Menthol (Phenaseptic 1.4% Throat [place]) 1 spry MT Q2 PRN PRN Reason: sore throat Promethazine HCl/Dextromethorphan (Phenergan Dm Syrup) 10 ml PO Q6 PRN PRN Reason: Cough Last Admin: 04/18/17 09:33 Dose: 10 ml Sucralfate (Carafate Tab) 1 gm PO ACHS [facility] Last Admin: 04/18/17 06:30 Dose: 1 gm Zolpidem Tartrate (Ambien) 5 mg PO HS PRN PRN Reason: Insomnia Last Admin: 04/16/17 22:01 Dose: 5 mg - Labs Labs: 04/18/17 10:00 04/10/17 05:30 - Constitutional Appears: No Acute Distress - Head Exam Head Exam: ATRAUMATIC, NORMAL INSPECTION, NORMOCEPHALIC - Eye Exam Eye Exam: EOMI, Normal appearance, PERRL Pupil Exam: NORMAL ACCOMODATION, PERRL - ENT Exam ENT Exam: Mucous Membranes Moist, Normal Exam - Neck Exam Neck Exam: Full ROM, Normal Inspection. absent: Lymphadenopathy - Respiratory Exam Respiratory Exam: Clear to Ausculation Bilateral, NORMAL BREATHING PATTERN - Cardiovascular Exam Cardiovascular Exam: REGULAR RHYTHM, +S1, +S2. absent: Murmur - GI/Abdominal Exam GI & Abdominal Exam: Soft, Normal Bowel Sounds. absent: Tenderness - Rectal Exam Rectal Exam: NORMAL INSPECTION - Extremities Exam Extremities Exam: Full ROM, Normal Capillary Refill, Normal Inspection. absent : Joint Swelling, Pedal Edema - Back Exam Back Exam: NORMAL INSPECTION - Neurological Exam Neurological Exam: Alert, Awake, CN II-XII Intact, Normal Gait, Oriented x3 - Psychiatric Exam Psychiatric exam: Normal Affect, Normal Mood - Skin Skin Exam: Dry, Intact, Normal Color, Warm Assessment and Plan - Assessment and Plan (Free Text) Assessment: S/P R SHOULDER SURGERY ANEMIA OF CHRONIC DZ CONSTIPATION DUE TO ANALGESICS Plan: LACTULOSE,PRN CONTINUE PRESENT RX
[2017-04-18 10:49] LABS: BLOOD UREA NITROGEN 9 mg/dl (7-17); CALCIUM 9.5 mg/dL (8.4-10.2); CARBON DIOXIDE 31 mmol/L (22-30); CHLORIDE 95 mmol/L (98-107); GFR AFRICAN-AMERICAN > 60; GLUCOSE,RANDOM 77 mg/dL (65-105); SODIUM 133 mmol/l (132-148)
[2017-04-19] MEDS: oxyCODONE 5 mg Immediate Release Tab PO PRN ×3 (05:39→17:34)
[2017-04-19] MEDS: Levothyroxine 50 MCG TAB PO SCH (06:50)
[2017-04-19] MEDS: Levothyroxine 200 MCG TAB PO SCH (06:50)
--- NOTE | 2017-04-19 08:35 | CP.PCM.PN ---
Subjective - Date & Time of Evaluation Date of Evaluation: 04/19/17 Time of Evaluation: 08:35 - Subjective Subjective: NO NEW COMPLAINTS CONSTIPATION IMPROVED SHOULDER PAIN LESS Objective - Vital Signs/Intake and Output Vital Signs (last 24 hours): Temp Pulse Resp BP Pulse Ox 97.7 F 92 H 20 101/69 100 04/19/17 08:18 04/19/17 08:18 04/19/17 08:18 04/19/17 08:18 04/19/17 08:18 - Medications Medications: Current Medications Acetaminophen (Tylenol 325mg Tab) 650 mg PO TID PRN PRN Reason: Pain, moderate (4-7) Last Admin: 04/15/17 14:43 Dose: 650 mg Acetaminophen/Butalbital/Caffeine (Fioricet) 1 tab PO Q6H PRN PRN Reason: Migraine headache Last Admin: 04/17/17 21:16 Dose: 1 tab Alprazolam (Xanax) 0.5 mg PO Q12 [facility] Last Admin: 04/18/17 21:56 Dose: 0.5 mg Amitriptyline HCl (Elavil) 50 mg PO BID [facility] Last Admin: 04/18/17 17:25 Dose: 50 mg Aspirin (Ecotrin) 81 mg PO DAILY [facility] Last Admin: 04/18/17 09:33 Dose: 81 mg Calcium Carbonate (Oscal) 500 mg PO BID [facility] Last Admin: 04/18/17 17:25 Dose: 500 mg Cholecalciferol (Vitamin D) 1,000 iu PO CONOR [facility] Last Admin: 04/15/17 08:52 Dose: 1,000 iu Demeclocycline HCl (Declomycin) 300 mg PO TID [facility] Last Admin: 04/18/17 17:25 Dose: 300 mg Docusate Sodium (Colace) 100 mg PO BID [facility] Last Admin: 04/18/17 17:25 Dose: 100 mg Duloxetine HCl (Cymbalta) 30 mg PO BID [facility] Last Admin: 04/18/17 17:25 Dose: 30 mg Enoxaparin Sodium (Lovenox) 40 mg SC DAILY [facility] PRN Reason: Protocol Last Admin: 04/18/17 09:36 Dose: 40 mg Ferrous Sulfate (Feosol) 325 mg PO BID [facility] Last Admin: 04/18/17 17:25 Dose: 325 mg Fluticasone Propionate (Flonase) 1 spr JESSICA BID [facility] Last Admin: 04/18/17 17:25 Dose: 1 spr Folic Acid (Folic Acid) 1 mg PO DAILY [facility] Last Admin: 04/18/17 09:34 Dose: 1 mg Gabapentin (Neurontin) 300 mg PO TID [facility] Last Admin: 04/18/17 17:25 Dose: 300 mg Levothyroxine Sodium (Synthroid) 50 mcg PO ACB [facility] Last Admin: 04/19/17 06:50 Dose: 50 mcg Levothyroxine Sodium (Synthroid) 200 mcg PO ACB [facility] Last Admin: 04/19/17 06:50 Dose: 200 mcg Meclizine HCl (Antivert) 25 mg PO DAILY [facility] Last Admin: 04/18/17 09:33 Dose: 25 mg Nystatin (Nystop Topical Powder) 1 applic TOP TID [facility] Last Admin: 04/18/17 17:25 Dose: 1 applic Oxycodone HCl (Oxycodone Immediate Release Tab) 10 mg PO Q6 PRN PRN Reason: Pain, severe (8-10) Last Admin: 04/19/17 05:39 Dose: 10 mg Oxycodone HCl (Oxycontin Extended Release Tab) 10 mg PO Q12 [facility] Stop: 04/20/17 21:01 Last Admin: 04/18/17 21:55 Dose: 10 mg Phenol/Menthol (Phenaseptic 1.4% Throat [place]) 1 spry MT Q2 PRN PRN Reason: sore throat Promethazine HCl/Dextromethorphan (Phenergan Dm Syrup) 10 ml PO Q6 PRN PRN Reason: Cough Last Admin: 04/18/17 09:33 Dose: 10 ml Sucralfate (Carafate Tab) 1 gm PO ACHS [facility] Last Admin: 04/19/17 06:50 Dose: 1 gm Zolpidem Tartrate (Ambien) 5 mg PO HS PRN PRN Reason: Insomnia Last Admin: 04/16/17 22:01 Dose: 5 mg - Labs Labs: 04/18/17 10:00 04/18/17 10:00 - Constitutional Appears: No Acute Distress - Head Exam Head Exam: ATRAUMATIC, NORMAL INSPECTION, NORMOCEPHALIC - Eye Exam Eye Exam: EOMI, Normal appearance, PERRL Pupil Exam: NORMAL ACCOMODATION, PERRL - ENT Exam ENT Exam: Mucous Membranes Moist, Normal Exam - Neck Exam Neck Exam: Full ROM, Normal Inspection. absent: Lymphadenopathy - Respiratory Exam Respiratory Exam: Clear to Ausculation Bilateral, NORMAL BREATHING PATTERN - Cardiovascular Exam Cardiovascular Exam: REGULAR RHYTHM, +S1, +S2. absent: Murmur - GI/Abdominal Exam GI & Abdominal Exam: Soft, Normal Bowel Sounds. absent: Tenderness - Rectal Exam Rectal Exam: NORMAL INSPECTION - Extremities Exam Extremities Exam: Full ROM, Normal Capillary Refill, Normal Inspection, Tenderness. absent: Joint Swelling, Pedal Edema Additional comments: R SHOULDER - Back Exam Back Exam: NORMAL INSPECTION - Neurological Exam Neurological Exam: Alert, Awake, CN II-XII Intact, Normal Gait, Oriented x3 - Psychiatric Exam Psychiatric exam: Normal Affect, Normal Mood - Skin Skin Exam: Dry, Intact, Normal Color, Warm Assessment and Plan - Assessment and Plan (Free Text) Assessment: S/P R SHOULDER SURGERY ANXIETY Plan: CONTINUE SAME RX
[2017-04-19] MEDS: Promethazine DM 12.5 mg-30 mg/10 ml Syrup PO PRN (08:40)
[2017-04-19] MEDS: oxyCODONE 10 mg ER Tab (oxyCONTIN) PO SCH ×2 (08:42→21:40)
[2017-04-19] MEDS: Enoxaparin 40 mg Syringe SC SCH (08:45)
[2017-04-19] MEDS: Apap-Butalbital-Caffeine 325-50-40mg Tab PO PRN (09:48)
[2017-04-20] MEDS: oxyCODONE 5 mg Immediate Release Tab PO PRN ×2 (04:47→11:29)
[2017-04-20] MEDS: Levothyroxine 50 MCG TAB PO SCH (06:31)
[2017-04-20] MEDS: Levothyroxine 200 MCG TAB PO SCH (06:31)
[2017-04-20] MEDS: oxyCODONE 10 mg ER Tab (oxyCONTIN) PO SCH (08:12)
[2017-04-20] MEDS: Promethazine DM 12.5 mg-30 mg/10 ml Syrup PO PRN (08:13)
[2017-04-20] MEDS: Enoxaparin 40 mg Syringe SC SCH (08:14)
[2017-04-20] MEDS: Apap-Butalbital-Caffeine 325-50-40mg Tab PO PRN (08:14)
[2017-04-20 08:27] VITALS: BP 105/73; PULSE 94; TEMP 97.7; O2SAT 97
--- NOTE | 2017-04-20 08:37 | CP.PCM.DIS ---
Provider - Provider Date of Admission: 04/08/17 13:50 Attending physician: Justin Baires MD Primary care physician: Justin Baires MD Time Spent in preparation of Discharge (in minutes): 35 Diagnosis - Discharge Diagnosis (1) Anemia Status: Acute (2) Aftercare following joint replacement surgery Status: Acute (3) Bronchitis Status: Acute (4) Celiac disease Status: Acute (5) Dizziness Status: Acute (6) Headache Status: Acute (7) Hyponatremia Status: Acute (8) Migraine Status: Acute (9) Vertigo Status: Acute Hospital Course - Lab Results Lab Results: Most Recent Lab Values WBC 7.2 K/uL (4.8-10.8) 04/18/17 10:00 RBC 2.83 Mil/uL (3.80-5.20) L 04/18/17 10:00 Hgb 8.4 g/dL (12.0-16.0) L 04/18/17 10:00 Hct 25.7 % (34.0-47.0) L 04/18/17 10:00 MCV 90.9 fl (81.0-99.0) 04/18/17 10:00 MCH 29.8 pg (27.0-31.0) 04/18/17 10:00 MCHC 32.8 g/dL (33.0-37.0) L 04/18/17 10:00 RDW 13.9 % (11.5-14.5) 04/18/17 10:00 Plt Count 420 K/uL (130-400) H D 04/18/17 10:00 Sodium 133 mmol/l (132-148) 04/18/17 10:00 Potassium 4.0 MMOL/L (3.6-5.0) 04/18/17 10:00 Chloride 95 mmol/L (98-107) L 04/18/17 10:00 Carbon Dioxide 31 mmol/L (22-30) H 04/18/17 10:00 Anion Gap 11 (10-20) 04/18/17 10:00 BUN 9 mg/dl (7-17) 04/18/17 10:00 Creatinine 0.6 mg/dL (0.7-1.2) L 04/18/17 10:00 Est GFR ( Amer) > 60 04/18/17 10:00 Est GFR (Non-Af Amer) > 60 04/18/17 10:00 Random Glucose 77 mg/dL (65-105) 04/18/17 10:00 Calcium 9.5 mg/dL (8.4-10.2) 04/18/17 10:00 Thyroxine (T4) 10.8 ug/dl (5.5-11.0) 04/10/17 05:30 TSH 3rd Generation 1.00 mIU/ML (0.46-4.68) 04/10/17 05:30 - Hospital Course Hospital Course: LESS SHOULDER PAIN DIZZINESS IMPROVED Discharge Exam - Head Exam Head Exam: ATRAUMATIC, NORMAL INSPECTION, NORMOCEPHALIC - Eye Exam Eye Exam: EOMI, Normal appearance, PERRL Pupil Exam: NORMAL ACCOMODATION, PERRL - GI/Abdominal Exam GI & Abdominal Exam: Normal Bowel Sounds - Rectal Exam Rectal Exam: NORMAL INSPECTION - Extremities Exam Extremities exam: tenderness Additional comments: R SHOULDER IN A SLING - Neurological Exam Neurological exam: Alert, CN II-XII Intact, Normal Gait, Oriented x3, Reflexes Normal - Psychiatric Exam Psychiatric exam: Normal Affect, Normal Mood - Skin Skin Exam: Dry, Intact, Normal Color, Warm Discharge Plan - Follow Up Plan Condition: GOOD Disposition: HOME/ ROUTINE Patient education suggested?: Yes Additional Instructions: UP WITH MYAH BAIRES AND MOSHE Referrals: Justin Baires MD [Primary Care Provider] -
== END 2017-04-20 14:10 | disposition home health service (06) | DRG 560 ==
LOC: H.TCU 13:50
PROVIDERS: ADMIT Internal Medicine Pulmonary Disease; ATTEND Internal Medicine Pulmonary Disease
PROC: F07Z9FZ Gait Training/Functional Ambulation Treatment using Assistive, Adaptive, Supportive or Protective Equipment (ICD-10-PCS; principal; 2017-04-08)
PROC: F08Z4FZ Home Management Treatment using Assistive, Adaptive, Supportive or Protective Equipment (ICD-10-PCS; 2017-04-08)
PROC: F07M6FZ Therapeutic Exercise Treatment of Musculoskeletal System - Whole Body using Assistive, Adaptive, Supportive or Protective Equipment (ICD-10-PCS; 2017-04-08)
DX: Z47.1 Aftercare following joint replacement surgery (principal); E87.1 Hypo-osmolality and hyponatremia; E03.9 Hypothyroidism, unspecified; D63.8 Anemia in other chronic diseases classified elsewhere; Z96.611 Presence of right artificial shoulder joint; F41.9 Anxiety disorder, unspecified; G43.909 Migraine, unspecified, not intractable, without status migrainosus; J06.9 Acute upper respiratory infection, unspecified; J44.9 Chronic obstructive pulmonary disease, unspecified; R26.81 Unsteadiness on feet; K90.0 Celiac disease; M79.7 Fibromyalgia; Z86.61 Personal history of infections of the central nervous system; Z87.891 Personal history of nicotine dependence; F32.9 Major depressive disorder, single episode, unspecified; G62.9 Polyneuropathy, unspecified; R20.2 Paresthesia of skin; M25.511 Pain in right shoulder; R21 Rash and other nonspecific skin eruption

== ENCOUNTER 2018-01-25 11:04 | Emergency (ER) | payer MEDICARE, BC ==
[2018-01-25 11:05] VITALS: BMI 26.2
--- NOTE | 2018-01-25 12:11 | ED PDOC ---
HPI: Trauma/Fall - HPI Time Seen by Provider: 01/25/18 11:23 Chief Complaint (Nursing): Trauma Chief Complaint (Provider): Fall Type Injuries History Per: Patient History/Exam Limitations: no limitations Associated Symptoms: Dazed. denies: Dizziness, LOC Additional Complaint(s): 57 year old female presents to the emergency department post fall with injuries to her head, neck , left posterior ribs and bilateral knees. Patient reports that there was no loss of consciousness but she was dazed after the fall. PMD: Justin Henderson I Past Medical History Reviewed: Historical Data, Nursing Documentation, Vital Signs Vital Signs: Last Vital Signs Temp 98.7 F 01/25/18 11:18 Pulse 88 01/25/18 11:18 Resp BP 119/80 01/25/18 11:18 Pulse Ox 98 01/25/18 12:19 - Medical History PMH: Anemia, Anxiety, Arthritis, Asthma, Bronchitis, COPD, Depression, Fibromyalgia, Fractures, HTN, Hypercholesterolemia, Hypothyroidism, Migraine, Osteoporosis Denies: HIV, Chronic Kidney Disease - Surgical History Other surgeries: Craniotomy; right shoulder surgery - Family History Family History: States: Unknown Family Hx - Social History Current smoker - smoking cessation education provided: Yes (Light Smoker < 10 Cigarettes Daily) Ex-Smoker (has not smoked in the last 12 months): No Alcohol: Occasional Drugs: Denies - Home Medications Home Medications: Ambulatory Orders Medication Instructions Recorded Amitriptyline [Elavil] 50 mg PO BID 12/05/15 DULoxetine [Cymbalta] 30 mg PO BID 12/05/15 Ferrous Sulfate [Iron Supplement] 325 mg PO BID 12/05/15 Gabapentin [Neurontin] 300 mg PO TID 12/05/15 Levothyroxine [Synthroid] 250 mcg PO DAILY 12/05/15 Meclizine [Meclizine*] 25 mg PO DAILY 12/05/15 Zolpidem [Ambien] 5 mg PO HS 12/05/15 Cholecalciferol (Vitamin D3) 2,000 unit PO DAILY 12/25/15 [Vitamin D3] Folic Acid 400 mcg PO DAILY 12/25/15 Linaclotide [Linzess] 145 mcg PO DAILY 12/25/15 Sucralfate [Carafate] 1 gm PO QID 12/25/15 Alpha Lipoic Acid 600 mg PO BID 03/16/16 Calcium Carbonate [Caltrate] 600 mg PO BID 03/16/16 Demeclocycline [Declomycin] 300 mg PO TID 03/16/16 Acetaminophen [Tylenol 325mg tab] 650 mg PO TID PRN 05/21/16 Alprazolam [Xanax] 0.5 mg PO BID 04/05/17 Aspirin [Lo-Dose Aspirin EC] 81 mg PO DAILY 04/05/17 Baclofen [Lioresal] 10 mg PO BID 04/05/17 Butalb/Acetaminophen/Caffeine 1 cap PO ASDIR PRN 04/05/17 [Zebutal 50-325-40 mg Capsule] Cyanocobalamin/Salcaprozat Sod 1 each PO DAILY 04/05/17 [Eligen B12 Tablet] Flaxseed Oil [Flax Seed Oil] 1 each PO DAILY 04/05/17 Lactobacillus Combination No.8 1 each PO DAILY 04/05/17 [Adult Probiotic] Tramadol HCl [Ultram] 50 mg PO Q6 PRN 04/05/17 Turmeric Root Extract [Turmeric] 1 each PO DAILY 04/05/17 Docusate [Colace] 100 mg PO BID cap 04/08/17 Enoxaparin [Lovenox] 40 mg SC DAILY syr 04/08/17 Promethazine DM [Phenergan DM 10 ml PO Q6 PRN dose 04/08/17 Syrup] oxyCODONE [oxyCODONE Immediate 10 mg PO Q4 PRN #10 tab 04/08/17 Release Tab] Lactulose [Enulose] 20 gm PO DAILY #1 udc 04/20/17 oxyCODONE [oxyCODONE Immediate 10 mg PO Q6 #20 tab 04/20/17 Release Tab] traMADol [Ultram] 50 mg PO Q8 #10 tab 01/25/18 - Allergies Allergies/Adverse Reactions: Allergies Allergy/AdvReac Type Severity Reaction Status Date / Time Penicillins Allergy RASH Verified 04/08/17 13:49 gluten AdvReac RASH Verified 04/08/17 13:49 Review of Systems ROS Statement: Except As Marked, All Systems Reviewed And Found Negative Musculoskeletal: Positive for: Neck Pain, Back Pain, Other (knee injury) Physical Exam - Reviewed Nursing Documentation Reviewed: Yes Vital Signs Reviewed: Yes - Physical Exam Appears: Positive for: Non-toxic, No Acute Distress Head Exam: Positive for: ATRAUMATIC, NORMAL INSPECTION, NORMOCEPHALIC Skin: Positive for: Normal Color, Warm, Dry. Negative for: Rash Eye Exam: Positive for: Normal appearance, EOMI, PERRL. Negative for: Nystagmus ENT: Positive for: Normal ENT Inspection. Negative for: Nasal Congestion, Tonsillar Exudate, Tonsillar Swelling Neck: Positive for: Normal (No palpable fracture or tenderness ), Painless ROM, Supple Cardiovascular/Chest: Positive for: Regular Rate, Rhythm. Negative for: Chest Non Tender (Chest ecchymosis and tenderness left lower posterior and lateral ribs no palpable fracture), Tachycardia Respiratory: Positive for: Normal Breath Sounds (equal breath sounds b/l). Negative for: Crackles, Rales, Rhonchi, Wheezing, Respiratory Distress Gastrointestinal/Abdominal: Positive for: Normal Exam, Bowel Sounds, Soft. Negative for: Tenderness, Mass, Guarding, Rebound Back: Positive for: Normal Inspection (no vertebral tenderness or deformity no sacral tenderness). Negative for: L CVA Tenderness, R CVA Tenderness, Vertebral Tenderness Extremity: Positive for: Normal ROM, Other (mild ecchymosis posteriorly to knees bilaterally). Negative for: Tenderness, Deformity, Swelling Neurologic/Psych: Positive for: Alert (AAO x3), Oriented, Gait - ECG O2 Sat by Pulse Oximetry: 98 (RA) Pulse Ox Interpretation: Normal Medical Decision Making Medical Decision Makin Initial Impression 57 year old female presenting with fall type injury Initial Plan: * CT Cervical Spine * CT head w/o Contrast * Udip * RAD Knee BI * RAD ribs and chest * Reevaluation Documented by Zeina Petty acting as a scribe for Mono Barth MD. All medical record entries made by the Scribe were at my direction and personally dictated by me. I have reviewed the chart and agree that the record accurately reflects my personal performance of the history, physical exam, medical decision making, and the department course for this patient. I have also personally directed, reviewed, and agree with the discharge instructions and disposition. Disposition - Clinical Impression Clinical Impression: Contusion - Patient ED Disposition Is Patient to be Admitted: No Counseled Patient/Family Regarding: Studies Performed, Diagnosis, Need For Followup, Rx Given - Disposition Referrals: Justin Mendieta MD [Family Provider] - Disposition: Routine/Home Disposition Time: 13:06 Condition: FAIR Prescriptions: traMADol [Ultram] 50 mg PO Q8 #10 tab Instructions: Contusion (DC) Forms: [employer] ([employer])
--- NOTE | 2018-01-25 12:39 | CT ---
PROCEDURE: CT HEAD WITHOUT CONTRAST. HISTORY: r/o bleed COMPARISON: 12/25/2015 TECHNIQUE: Axial computed tomography images were obtained through the head/brain without intravenous contrast. Coronal and sagittal reconstructed images. Radiation dose: Total exam DLP = 729.42 mGy-cm. This CT exam was performed using one or more of the following dose reduction techniques: Automated exposure control, adjustment of the mA and/or kV according to patient size, and/or use of iterative reconstruction technique. FINDINGS: HEMORRHAGE: No intracranial hemorrhage. BRAIN: No mass effect or edema. No atrophy or chronic microvascular ischemic changes. VENTRICLES: Unremarkable. No hydrocephalus. CALVARIUM: Prior craniotomy findings identified previously. Nasal antral surgery, also identified previously. PARANASAL SINUSES: Stable postoperative findings. MASTOID AIR CELLS: Unremarkable as visualized. No inflammatory changes. OTHER FINDINGS: None. IMPRESSION: No acute intracranial abnormalities. No significant findings to account for the clinical presentation. No significant interval change compared to the prior examination(s).
--- NOTE | 2018-01-25 12:42 | CT ---
PROCEDURE: CT Cervical Spine without contrast HISTORY: trauma COMPARISON: None available. TECHNIQUE: Axial computed tomography images were obtained of the cervical spine without the use of intravenous contrast. Coronal and sagittal reformatted images were created and reviewed. Radiation dose: Total exam DLP = 467.24 mGy-cm. This CT exam was performed using one or more of the following dose reduction techniques: Automated exposure control, adjustment of the mA and/or kV according to patient size, and/or use of iterative reconstruction technique. FINDINGS: VERTEBRAE: No fracture. Normal alignment. No destructive bony lesion. DISCS/SPINAL CANAL/NEURAL FORAMINA: No significant central canal or neural foraminal stenosis. Discs heights are grossly preserved. PARASPINAL SOFT TISSUES: Unremarkable. OTHER FINDINGS: None. IMPRESSION: Unremarkable CT of the cervical spine.
[2018-01-25] MEDS ORDERED: Naproxen 500 MG TAB PO ONE (13:04)
[2018-01-25] MEDS ORDERED: Naproxen 500 MG TAB PO STA (13:10)
[2018-01-25 13:51] VITALS: BP 119/67; PULSE 76; RESP 18; TEMP 98; O2SAT 100
--- NOTE | 2018-01-25 15:02 | RAD ---
PROCEDURE: Radiographs of the Chest and Left Ribs. HISTORY: trauma COMPARISON: 04/09/2017 single-view chest.. TECHNIQUE: Frontal radiograph of the chest and multiple oblique radiographs of the left ribs were obtained. FINDINGS: LEFT RIBS: No fracture or focal lesion visualized. LUNGS: Clear. PLEURA: No pneumothorax or pleural fluid. CARDIOVASCULAR: Normal sized heart. No pulmonary vascular congestion. OTHER FINDINGS: None. IMPRESSION: Unremarkable radiographs of the chest and left ribs. No left rib fracture.
--- NOTE | 2018-01-25 15:03 | RAD ---
PROCEDURE: Bilateral Knee Radiographs. HISTORY: trauma COMPARISON: None. FINDINGS: BONES: Right Knee: Normal. No fracture. Left Knee: Normal. No fracture. JOINTS: Right Knee: Normal. No osteoarthritis. Left knee: Normal. No osteoarthritis. SOFT TISSUES: Right Knee: Normal. Left Knee: Normal. JOINT EFFUSION: Right Knee: None. Left Knee: None. OTHER FINDINGS: None. IMPRESSION: No acute findings related to/accounting for the clinical presentation.
== END 2018-01-25 13:50 | disposition home or self-care (01) ==
LOC: H.ER 11:04
DX: S09.90XA Unspecified injury of head, initial encounter (principal); S20.219A Contusion of unspecified front wall of thorax, initial encounter; S80.00XA Contusion of unspecified knee, initial encounter; W19.XXXA Unspecified fall, initial encounter; Y92.89 Other specified places as the place of occurrence of the external cause; E03.9 Hypothyroidism, unspecified; E78.00 Pure hypercholesterolemia, unspecified; I10 Essential (primary) hypertension; M79.7 Fibromyalgia; Z88.0 Allergy status to penicillin

== ENCOUNTER 2018-06-17 08:31 | Day surgery (SDC) | payer MEDICARE, BC ==
[2018-05-13 12:06] VITALS: BMI 26.6
[2018-06-17] MEDS ORDERED: Lidocaine 1% Inj (20ml) ONE (09:02)
[2018-06-17] MEDS ORDERED: MethylPREDNISolone Depo 40 mg/ml Inj ONE (09:02)
[2018-06-17] MEDS ORDERED: Bupivacaine HCl 0.25% PF (30 ml) Inj ONE (09:02)
[2018-06-17] MEDS ORDERED: Iohexol 300 10 ML ONE (09:02)
[2018-06-17] MEDS ORDERED: Midazolam 2 MG/2 ML VIAL ONE (10:24)
[2018-06-17] MEDS ORDERED: MethylPREDNISolone Depo 40 mg/ml Inj IM ONE (10:32)
[2018-06-17] MEDS ORDERED: Lactated Ringer's 1,000 ML IV ONE (10:33)
[2018-06-17 12:03] VITALS: BP 105/60; PULSE 84; RESP 18; TEMP 98.2; O2SAT 99
--- NOTE | 2018-06-17 13:14 | RAD ---
Date of service: 06/17/2018 PROCEDURE: Fluoroscopy up to 1 hr. Pain management injection epidural steroid HISTORY: PAIN MANAGEMENT COMPARISON: None TECHNIQUE: Standard protocol for this study/examination. FINDINGS: Total fluoroscopic time (continuous mode) utilized during the procedure 27.9 seconds. Total exam DLP: 7.02 (mGy). IMPRESSION: Less than 1 hr fluoroscopic assistance provided during performance of the procedure.
--- NOTE | 2018-06-17 22:28 | CON ---
DATE: 06/17/2018 PREOPERATIVE DIAGNOSIS: Lumbar radiculopathy. POSTOPERATIVE DIAGNOSIS: Lumbar radiculopathy. PROCEDURE: Caudal epidural steroid injection. SURGEON: Cheryle Johnson MD ANESTHESIOLOGIST: Kalie Rocha MD ANESTHESIA TYPE: Monitored anesthesia care. COMPLICATIONS: None. SPECIMENS: None. DESCRIPTION OF PROCEDURE: As follows: After we had a discussion of the procedure with the patient including its risks, benefits, alternatives, outcome of data, and possibility of no effect or increased pain, the patient consented to the procedure. She denies any recent infection, bleeding tendencies, or being on anticoagulants; decision was then made to proceed to the OR. The patient was placed on a fluoroscopy table in a prone position with two pillows underneath her abdomen. The back was prepped and draped in a usual sterile fashion and sterile technique was adhered to during the entire procedure. The sacral hiatus was first palpated on the entire posterior rib. The skin approximately 5 cm distal to this area was then infiltrated with 1% lidocaine using a 25-gauge needle. Under lateral fluoroscopy guidance, a 20-gauge 3.5 inch Tuohy needle was then completely advanced under fluoroscopic guidance until the needle pierced the sacral hiatus and advanced until appropriate depth was reached. At this point, approximately 3 mL of Isovue contrast was injected and the contrast was seen spread up to the L4 vertebral levels. At this point, approximately 10 mL of 0.25% Marcaine and Depo-Medrol and normal saline mixture was gradually injected. The needle was then removed. The patient's back was cleaned and dry bandages were applied. The patient was then transferred to the recovery area in good condition without any signs of [employer] toxicity or any neurological deficit. She will be following in the office in approximately two to four weeks. Cheryle Johnson MD
== END 2018-06-17 12:13 | disposition home or self-care (01) ==
LOC: H.OPSURG 08:31
PROVIDERS: ATTEND Anesthesiology
DX: M54.16 Radiculopathy, lumbar region (principal); K21.9 Gastro-esophageal reflux disease without esophagitis; E03.9 Hypothyroidism, unspecified
CPT/HCPCS: 62323; J1030; J2250; J3010; J7120; Q9967